=== PATIENT | female | born 1990 | race Caucasian/White ===

== ENCOUNTER 2016-10-20 06:07 | Inpatient (IN) | payer MEDICAID ==
[2016-10-17 11:43] LABS: ABSOLUTE EOSINOPHILS # (AUTO) 0.1 10^3/uL (0.0-0.6); ABSOLUTE LYMPHOCYTES (AUTO) 1.9 10^3/uL (0.5-4.7); ABSOLUTE NEUT (AUTO) 6.8 10^3/uL (1.7-8.2); BASOPHILS % (AUTO) 0.4 % (0-2); EOSINOPHILS % (AUTO) 1.4 % (0-6); HEMATOCRIT 36.1 % (36.0-47.0); HEMOGLOBIN 12.7 g/dL (12.0-15.5); LYMPHOCYTES % (AUTO) 19.6 % (13-45); MEAN CORPUSCULAR HEMOGLOBIN 33.9 pg (27.0-33.4); MEAN CORPUSCULAR HGB CONC 35.3 g/dL (32.0-36.0); MEAN CORPUSCULAR VOLUME 96 fl (80-97); MONOCYTES % (AUTO) 10.4 % (3-13); RED BLOOD COUNT 3.76 10^6/uL (3.72-5.28); RED CELL DISTRIBUTION WIDTH 13.2 % (11.5-14.0); SEGMENTED NEUTROPHILS % (AUTO) 68.2 % (42-78); WHITE BLOOD COUNT 9.9 10^3/uL (4.0-10.5)
[2016-10-17 11:49] LABS: APPEARANCE,URINE SLIGHTLY-CLOUDY; BILIRUBIN,URINE NEGATIVE (NEGATIVE); GLUCOSE, URINE NEGATIVE (NEGATIVE); KETONES,URINE NEGATIVE (NEGATIVE); LEUKOCYTE ESTERASE,URINE NEGATIVE (NEGATIVE); NITRITE,URINE NEGATIVE (NEGATIVE); PROTEIN,URINE NEGATIVE (NEGATIVE); URINE SPECIFIC GRAVITY 1.009; UROBILINOGEN,URINE NEGATIVE mg/dL (<2.0)
[2016-10-17 12:30] LABS: URINE BARBITURATES SCREEN NEGATIVE; URINE METHADONE SCREEN NEGATIVE; URINE OPIATES LOW NEGATIVE; URINE PHENCYCLIDINE SCREEN NEGATIVE
[~2016-10-20 06:07] MED LIST: CEFAZOLIN 2 GM/D5W RTU 2 GM/50 ML RTUPB IV PRN; CITRIC ACID/SODIUM CITRATE ORAL SOLN 15 ML UDCUP PO PRN; LACTATED RINGERS 1000 ML IV PRN; LIDOCAINE 0.5% INJ-PF (5 MG/ML) 50 ML SDV SUBCUT PRN
[2016-10-20] MEDS ORDERED: RINGERS SOLUTION,LACTATED 1,000 ML IV PRN (06:47)
[2016-10-20] MEDS ORDERED: ACETAMINOPHEN 100 ML IV ONE (07:32)
[2016-10-20] MEDS ORDERED: PROPOFOL INJ 200 MG/20 ML VIAL IV ONE (07:55)
[2016-10-20] MEDS ORDERED: MIDAZOLAM 2 MG/2 ML INJ ONE (07:56)
[2016-10-20] MEDS ORDERED: MORPHINE SULFATE 10 MG/ML INJ ONE (07:56)
[2016-10-20] MEDS ORDERED: OXYTOCIN 10 UNIT/ML VIAL ONE (07:56)
[2016-10-20] MEDS ORDERED: ACETAMINOPHEN 325 MG TABLET PO PRN (09:09)
[2016-10-20] MEDS ORDERED: SIMETHICONE 80 MG TAB.CHEW PO PRN (09:09)
[2016-10-20] MEDS ORDERED: PROMETHAZINE HCL INJ 25 MG/1 ML VIAL IV PRN (09:09)
[2016-10-20] MEDS ORDERED: OXYTOCIN/NORMAL SALINE 1,000 ML IV PRN (09:09)
[2016-10-20] MEDS ORDERED: DIPH/PERTUSS(ACELL)/TETANUS VAC/PF 0.5 ML SYR (>=10YO) IM PRN (09:09)
[2016-10-20] MEDS ORDERED: OXYCODONE-ACETAMINOPHEN 5-325 MG TABLET PO PRN (09:09)
[2016-10-20] MEDS ORDERED: MEASLES,MUMPS&RUBELLA VACC/PF 0.5 ML VIAL SUBCUT PRN (09:09)
--- NOTE | 2016-10-20 09:15 | Operative Report ---
Operative Report DATE OF SURGERY: 10/20/16 PREOPERATIVE DIAGNOSIS: Repeat to prevent risk of uterine rupture POSTOPERATIVE DIAGNOSIS: Same OPERATION: Repeat via low transverse uterine incision SURGEON: MAURISIO TODD WIRE STRANDER: OR staff ANESTHESIA: Spinal TISSUE REMOVED OR ALTERED: Placenta COMPLICATIONS: None ESTIMATED BLOOD LOSS: 250 mL INTRAOPERATIVE FINDINGS: Viable female Apgars 9 and 9 weight 7 lbs. 6 oz. PROCEDURE: Patient was taken to the OR and placed in supine position after her spinal anesthesia. She is prepared and draped in sterile fashion. Rojas was placed for drainage of the bladder. Low transverse incision was made and carried down the level of the fascia. The fascial incision was made with knife and extended bilaterally with curved Olson scissors. The fascia was off the rectus muscles using sharp and blunt dissection. The rectus muscles are in the midline. The peritoneum was entered without incident. Bladder blade was placed in uterine segment was identified. A low transverse incision was made creating a bladder flap. Bladder blade was placed low transverse uterine incision was made with the csafe knife and extended with fingertips. The baby was delivered with some fundal pressure. A Kiwi vacuum was used to assist the delivery of the head. The pressure was in the green with 1 small pull, no pop offs. Mouth and nose were suctioned free. The cord is doubly clamped and cut. Baby is passed off to the design technology teacher in attendance. The placenta was manually extracted with trailing membranes. The uterus was externalized wrapped in a moist lap sponge. Uterine contents wiped free. Uterus was closed with a running locking layer of 0 chromic suture using the second layer to imbricate the first completing a double layer closure of the uterus. The serosa was closed with a running 2-0 chromic stitch. The pelvis was irrigated and suctioned free of fluid the uterus was replaced in the abdomen. The abdominal wall peritoneum was closed with running 2-0 chromic stitch. Fascia was closed with a running 0 Vicryl in 2 segments. Tammi's layer was brought together with 0 plain gut stitch and the skin was closed with running subcuticular 4-0 undyed Vicryl stitch. The wound was dressed mother and baby did well.
[2016-10-20] MEDS: FENTANYL CITRATE INJ/PF 100 MCG/2 ML AMPUL ONE ×2 (09:45→10:06)
[2016-10-20] MEDS: KETOROLAC TROMETHAMINE INJ/PF 30 MG/1 ML SDV IV SCH ×3 (09:56→22:14)
[2016-10-20] MEDS ORDERED: KETOROLAC TROMETHAMINE INJ/PF 30 MG/1 ML SDV ONE (09:57)
[2016-10-20] MEDS: MORPHINE SULFATE 10 MG/ML INJ ONE ×2 (10:34→10:37)
[2016-10-20] MEDS: DOCUSATE SODIUM 100 MG CAPSULE PO SCH ×2 (11:40→17:05)
[2016-10-20] MEDS: PRENATAL VITAMIN W-O CA NO5/FE FUMARATE/FA CAPSULE PO SCH (11:40)
[2016-10-20] MEDS: HYDROMORPHONE HCL INJ/PF 2 MG/ML AMPULE IV PRN ×2 (11:48→18:24)
[2016-10-20] MEDS ORDERED: LIDOCAINE 2% INJ-PF (20 MG/ML) 10 ML AMPUL ONE (12:17)
[2016-10-20] MEDS ORDERED: PHENYLEPHRINE HCL INJ/PF 10 MG/1 ML SDV ONE (12:17)
[2016-10-20] MEDS ORDERED: ONDANSETRON HCL INJ/PF 4 MG/2 ML SDV ONE (12:17)
[2016-10-20] MEDS ORDERED: KETOROLAC TROMETHAMINE 60 MG/2 ML SDV ONE (12:17)
[2016-10-20] MEDS: OXYCODONE-ACETAMINOPHEN 5-325 MG TABLET PO PRN ×2 (15:05→21:05)
[2016-10-21] MEDS: OXYCODONE-ACETAMINOPHEN 5-325 MG TABLET PO PRN ×5 (01:07→20:44)
[2016-10-21] MEDS: KETOROLAC TROMETHAMINE INJ/PF 30 MG/1 ML SDV IV SCH (05:22)
[2016-10-21 07:13] LABS: HEMATOCRIT 33.7 % (36.0-47.0); HEMOGLOBIN 11.9 g/dL (12.0-15.5); MEAN CORPUSCULAR HEMOGLOBIN 33.9 pg (27.0-33.4); MEAN CORPUSCULAR HGB CONC 35.4 g/dL (32.0-36.0); MEAN CORPUSCULAR VOLUME 96 fl (80-97); RED BLOOD COUNT 3.51 10^6/uL (3.72-5.28); RED CELL DISTRIBUTION WIDTH 13.1 % (11.5-14.0); WHITE BLOOD COUNT 12.8 10^3/uL (4.0-10.5)
--- NOTE | 2016-10-21 09:55 | PDOC PROGRESS REPORT ---
Subjective-OB Subjective: Post Delivery Day: 26 year old. Denies any needs at this time Physical Exam (OB) Vital Signs: Temp Pulse Resp BP Pulse Ox 97.8 F 85 18 103/59 L 97 10/21/16 08:15 10/21/16 08:15 10/21/16 08:15 10/21/16 08:15 10/21/16 08:15 Intake & Output 10/20/16 10/21/16 10/22/16 06:59 06:59 06:59 Intake Total 4680 Output Total 2925 Balance 1755 - Dressing Removed: No Incision: Dressing - Lochia Lochia Amount: Scant < 10 ml Lochia Color: Rubra/Red - Abdomen Description: Tender, Soft Hernia Present: No Bowel Sounds: Normoactive Flatus Presence: Present Stool: No Fundal Description: Firm, Midline Fundal Height: u/u - u/2 Objective-Diagnostic Laboratory: 10/21/16 06:55 10/21/16 06:55 WBC 12.8 H RBC 3.51 L Hgb 11.9 L Hct 33.7 L MCV 96 MCH 33.9 H MCHC 35.4 RDW 13.1 Plt Count 239
[2016-10-21] MEDS: PRENATAL VITAMIN W-O CA NO5/FE FUMARATE/FA CAPSULE PO SCH (10:05)
[2016-10-21] MEDS: DOCUSATE SODIUM 100 MG CAPSULE PO SCH ×2 (10:06→17:56)
[2016-10-21] MEDS: IBUPROFEN 800 MG TABLET PO SCH ×3 (12:04→23:24)
[2016-10-22] MEDS: OXYCODONE-ACETAMINOPHEN 5-325 MG TABLET PO PRN (01:42)
[2016-10-22 03:42] VITALS: BP 112/60
[2016-10-22] MEDS: DOCUSATE SODIUM 100 MG CAPSULE PO SCH ×2 (10:00→18:00)
[2016-10-22] MEDS: PRENATAL VITAMIN W-O CA NO5/FE FUMARATE/FA CAPSULE PO SCH (10:00)
[2016-10-22] MEDS: IBUPROFEN 800 MG TABLET PO SCH ×2 (12:00→18:00)
--- NOTE | 2016-10-24 16:50 | PDOC DELIVERY SUMMARY ---
Delivery Summary - Maternal Hx : III Hx # Term Pregnancies: 1 Hx # Pregnancies: 1 Hx Total # of Abortions (Sponateous & Elective): 1 JANINE: 10/25/16 Gestational Age: 39+2 Ruptured Membranes: AROM Time of Rupture: 08:29 Fluids: Clear - Delivery Presentation: Face/Brow Heart Rate Monitoring: Done Pre-Operatively Support Person Present: Yes Location: OR : Scheduled Placenta: Within Normal Limits Delivery of Placenta Date: 10/20/16 Delivery of Placenta Time: 08:33 - Medications Type of Anesthesia:: Spinal - Assess and Care Baby 1 Female Delivery of Infant Date: 10/20/16 Delivery of Infant Time: 08:31 at 1 minute: 9 at 5 minutes: 9 Preprinted Number On Band: [id number] Infant Skin to Skin: Yes Skin to Skin (Mins): 7 To Nursery At: 08:42 [facility] Weight: 3445 kg Infant Length: 18.5 in - Delivery Personnel Nursery RN: Raul PERALTA Nursery RN: Carmine REILLY RN: SUMEET LAINEZ RN: DAVE GALLOWAY MD: MAURISIO POOL Studio Assistant: DR. MEJIA
== END 2016-10-22 12:41 | disposition home or self-care (01) | DRG 766 ==
LOC: 2S 06:07
PROVIDERS: ADMIT Obstetrics & Gynecology; ATTEND Obstetrics & Gynecology
PROC: 4A1HXCZ Monitoring of Products of Conception, Cardiac Rate, External Approach (ICD-10-PCS; 2016-10-20)
PROC: 10D00Z1 Extraction of Products of Conception, Low, Open Approach (ICD-10-PCS; principal; 2016-10-20 07:45)
DX: O34.211 Maternal care for low transverse scar from previous cesarean delivery (principal); O99.344 Other mental disorders complicating childbirth; F31.9 Bipolar disorder, unspecified; Z3A.39 39 weeks gestation of pregnancy; Z37.0 Single live birth
CPT/HCPCS: 1961; 36415; 80307; 81001; 85025; 85027; 86850; 86900; 86901; 94799; J0131; J1170; J1885; J2250; J2270; J2370; J2405; J2590; J2704; J3010; J3490

== ENCOUNTER 2017-12-20 11:25 | Outpatient (CLI) | payer MEDICAID ==
[2017-12-20 12:03] LABS: APPEARANCE,URINE CLEAR; BILIRUBIN,URINE NEGATIVE (NEGATIVE); COLOR,URINE YELLOW; GLUCOSE, URINE NEGATIVE (NEGATIVE); KETONES,URINE NEGATIVE (NEGATIVE); LEUKOCYTE ESTERASE,URINE MODERATE (NEGATIVE); NITRITE,URINE NEGATIVE (NEGATIVE); PROTEIN,URINE NEGATIVE (NEGATIVE); URINE SPECIFIC GRAVITY 1.013
[2017-12-20 12:16] LABS: URINE AMPHETAMINES SCREEN NEGATIVE; URINE BARBITURATES SCREEN NEGATIVE; URINE BENZODIAZEPINES SCREEN NEGATIVE; URINE COCAINE SCREEN NEGATIVE; URINE MARIJUANA (THC) SCREEN NEGATIVE; URINE METHADONE SCREEN NEGATIVE; URINE PHENCYCLIDINE SCREEN NEGATIVE
--- NOTE | 2017-12-20 12:16 | Non Stress Test Report ---
Non Stress Test Datetime Report Generated by CPN: 12/20/2017 12:15 DEMOGRAPHIC EGA NST: 33.5 INDICATION Indication for Study: Ordered by Provider Indication for Study (NST) Other: Labor Check MONITORING Monitor Explained: Monitor Explained; Test Explained; Patient Verbalized Understanding Time on Monitor: 12/20/2017 11:42 Time off Monitor: 12/20/2017 12:14 NST Duration: 32 NST INTERVENTIONS NST Interventions: PO Hydration; Reposition Patient Physician Notified NST: Dr. Lazar BABY A: [id number] BABY A Movement : Present Contraction Frequency : 0 Accelerations : 15X15 Decelerations : None Variability : Moderate 6-25bpm NST Review: Meets Criteria for Reactive NST NST Review and Verified By : Gregg Redmond RN NST Results: Reactive NST REPORT Report Trigger: Send Report
== END 2017-12-20 12:50 | disposition home or self-care (01) ==
LOC: LC 11:25
PROVIDERS: ATTEND Obstetrics & Gynecology Gynecology
PROC: 4A1HXCZ Monitoring of Products of Conception, Cardiac Rate, External Approach (ICD-10-PCS; principal; 2017-12-20)
DX: Z34.93 Encounter for supervision of normal pregnancy, unspecified, third trimester (principal)
CPT/HCPCS: 80307; 81001

== ENCOUNTER 2017-12-29 09:59 | Outpatient (CLI) | payer MEDICAID ==
--- NOTE | 2017-12-29 10:51 | Non Stress Test Report ---
Non Stress Test Datetime Report Generated by CPN: 12/29/2017 10:51 DEMOGRAPHIC EGA NST: 35.0 INDICATION Indication for Study: Ordered by Provider Indication for Study (NST) Other: J. Givens, CNM VITAL SIGNS Temperature - NST: 97.9 Pulse - NST: 82 RESP - NST: 14 NBPSYS NST: 99 NBPDIA NST: 58 MONITORING Monitor Explained: Monitor Explained; Test Explained; Patient Verbalized Understanding Time on Monitor: 12/29/2017 10:17 Time off Monitor: 12/29/2017 10:47 NST Duration: 30 NST INTERVENTIONS NST Interventions: PO Hydration; Reposition Patient BABY A: [id number] BABY A Movement : Present Contraction Frequency : 0 FHR Baseline : 120 Accelerations : 15X15 Decelerations : None Variability : Moderate 6-25bpm NST Review: Meets Criteria for Reactive NST NST Review and Verified By : Pamela Avila RN NST Results: Reactive NST REPORT Report Trigger: Send Report
[2017-12-29 10:56] LABS: APPEARANCE,URINE CLEAR; BILIRUBIN,URINE NEGATIVE (NEGATIVE); COLOR,URINE STRAW; GLUCOSE, URINE NEGATIVE (NEGATIVE); KETONES,URINE NEGATIVE (NEGATIVE); LEUKOCYTE ESTERASE,URINE NEGATIVE (NEGATIVE); NITRITE,URINE NEGATIVE (NEGATIVE); PROTEIN,URINE NEGATIVE (NEGATIVE); URINE SPECIFIC GRAVITY 1.005; UROBILINOGEN,URINE NEGATIVE mg/dL (<2.0)
[2017-12-29 11:17] LABS: URINE AMPHETAMINES SCREEN NEGATIVE; URINE BARBITURATES SCREEN NEGATIVE; URINE BENZODIAZEPINES SCREEN NEGATIVE; URINE COCAINE SCREEN NEGATIVE; URINE MARIJUANA (THC) SCREEN NEGATIVE; URINE METHADONE SCREEN NEGATIVE; URINE PHENCYCLIDINE SCREEN NEGATIVE
== END 2017-12-29 11:17 | disposition home or self-care (01) ==
LOC: LC 09:59
PROVIDERS: ATTEND Obstetrics & Gynecology
PROC: 4A1HXCZ Monitoring of Products of Conception, Cardiac Rate, External Approach (ICD-10-PCS; principal; 2017-12-29)
DX: O99.89 Other specified diseases and conditions complicating pregnancy, childbirth and the puerperium (principal); M54.40 Lumbago with sciatica, unspecified side; Z3A.35 35 weeks gestation of pregnancy
CPT/HCPCS: 59025; 80307; 81001

== ENCOUNTER 2018-01-21 11:32 | Emergency (ER) | payer MEDICAID ==
[2018-01-21 11:44] VITALS: BP 115/71
--- NOTE | 2018-01-21 11:59 | ER Document Report ---
HPI - HPI Patient complains to provider of: Dental pain Pain Level: 5 Context: Patient is a 27-year-old female complaining of acute onset pain to her right upper premolar tooth #15 approximately an hour prior to arrival. Patient had that tooth extracted over a year ago but is having "phantom" pain. No fever or facial swelling Associated Symptoms: None Exacerbated by: Denies - Dental clinic - ROS Systems Reviewed and Negative: Yes All other systems reviewed and negative - REPRODUCTIVE Reproductive: REPORTS: : Past Medical History - General Information source: Patient - Social History Smoking Status: Current Every Day Smoker Frequency of alcohol use: None Lives with: Family Family History: CAD, Hyperlipidemia, Hypertension, Malignancy GI Medical History: Reports: Hx Gastroesophageal Reflux Disease - c preg. Denies: Hx Hiatal Hernia, Hx Ulcer Psychiatric Medical History: Reports: Hx Bipolar Disorder - no meds, Hx Depression - no meds Past Surgical History: Reports: Hx Breast Surgery - biopsy, Hx Section - 06/24/14 - Immunizations Immunizations up to date: Yes Hx Diphtheria, Pertussis, Tetanus Vaccination: Yes - 2014 [facility] Provider Document - CONSTITUTIONAL Agree With Documented VS: Yes - INFECTION CONTROL TRAVEL OUTSIDE OF THE [place] IN LAST 30 DAYS: No - HEENT HEENT: Atraumatic, PERRLA Mouth Diagram: 1 - pain. No swelling or gingival abscess - NECK Neck: Normal Inspection, Supple - RESPIRATORY Respiratory: Breath Sounds Normal - CARDIOVASCULAR Cardiovascular: Regular Rate, Regular Rhythm - MUSCULOSKELETAL/EXTREMETIES Musculoskeletal/Extremeties: MAEW - NEURO Level of Consciousness: Awake, Alert, Appropriate Course - Re-evaluation Re-evalutation: 01/21/18 11:56 History and physical are consistent with an uncomplicated dental pain. There are no signs of Sharath's angina or peritonsillar abscess or gingival abscess. Patient has no trismus. No perioral swelling. No airway compromise. No signs and symptoms of sepsis. Course of antibiotics will be prescribed. Patient encouraged to follow-up with dental for further evaluation and treatment - Vital Signs Vital signs: Temp Pulse Resp BP Pulse Ox 97.9 F 80 16 115/71 99 01/21/18 11:43 01/21/18 11:43 01/21/18 11:43 01/21/18 11:43 01/21/18 11:43 Discharge - Discharge Clinical Impression: Pain, dental Disposition: HOME, SELF-CARE Instructions: Toothache ([facility]), Penicillin V K ([facility]), Acetaminophen Additional Instructions: Take antibiotic as prescribed Take Tylenol for pain Follow-up with dental for further evaluation and treatment Prescriptions: Penicillin V Potassium [Penicillin Vk 500 mg Tablet] 500 mg PO BID #20 tablet Forms: Return to Work Referrals: CESAR ABRAMS MD [Primary Care Provider] - Follow up as needed
== END 2018-01-21 12:01 | disposition home or self-care (01) ==
LOC: ER 11:32
DX: K08.9 Disorder of teeth and supporting structures, unspecified (principal); F17.200 Nicotine dependence, unspecified, uncomplicated
CPT/HCPCS: 99282

== ENCOUNTER 2018-01-27 16:01 | Inpatient (IN) | payer MEDICAID ==
[2018-01-27 16:44] LABS: APPEARANCE,URINE SLIGHTLY-CLOUDY; BILIRUBIN,URINE NEGATIVE (NEGATIVE); COLOR,URINE YELLOW; GLUCOSE, URINE NEGATIVE (NEGATIVE); KETONES,URINE NEGATIVE (NEGATIVE); LEUKOCYTE ESTERASE,URINE NEGATIVE (NEGATIVE); NITRITE,URINE NEGATIVE (NEGATIVE); PROTEIN,URINE NEGATIVE (NEGATIVE); URINE SPECIFIC GRAVITY 1.015; UROBILINOGEN,URINE NEGATIVE mg/dL (<2.0)
[2018-01-27] MEDS ORDERED: RINGERS SOLUTION,LACTATED 1,000 ML IV PRN ×2 (16:56→19:05)
[2018-01-27] MEDS ORDERED: CEFAZOLIN 2 GM/D5W RTU 2 GM/50 ML RTUPB IV ONE (17:21)
[2018-01-27] MEDS ORDERED: CITRIC ACID/SODIUM CITRATE ORAL SOLN 15 ML UDCUP ONE (17:21)
[2018-01-27 17:25] LABS: URINE AMPHETAMINES SCREEN NEGATIVE; URINE BARBITURATES SCREEN NEGATIVE; URINE BENZODIAZEPINES SCREEN NEGATIVE; URINE COCAINE SCREEN NEGATIVE; URINE MARIJUANA (THC) SCREEN NEGATIVE; URINE METHADONE SCREEN NEGATIVE; URINE PHENCYCLIDINE SCREEN NEGATIVE
[2018-01-27 17:41] LABS: ABSOLUTE EOSINOPHILS # (AUTO) 0.1 10^3/uL (0.0-0.6); ABSOLUTE LYMPHOCYTES (AUTO) 1.7 10^3/uL (0.5-4.7); ABSOLUTE MONOCYTES (AUTO) 0.9 10^3/uL (0.1-1.4); ABSOLUTE NEUT (AUTO) 6.5 10^3/uL (1.7-8.2); BASOPHILS % (AUTO) 0.5 % (0-2); EOSINOPHILS % (AUTO) 1.4 % (0-6); HEMATOCRIT 33.8 % (36.0-47.0); HEMOGLOBIN 11.9 g/dL (12.0-15.5); LYMPHOCYTES % (AUTO) 18.5 % (13-45); MEAN CORPUSCULAR HEMOGLOBIN 33.2 pg (27.0-33.4); MEAN CORPUSCULAR HGB CONC 35.1 g/dL (32.0-36.0); MEAN CORPUSCULAR VOLUME 95 fl (80-97); MONOCYTES % (AUTO) 9.8 % (3-13); PLATELET COUNT 267 10^3/uL (150-450); RED BLOOD COUNT 3.57 10^6/uL (3.72-5.28); RED CELL DISTRIBUTION WIDTH 12.7 % (11.5-14.0); SEGMENTED NEUTROPHILS % (AUTO) 69.8 % (42-78); TOTAL CELLS COUNTED % (AUTO) 100 %; WHITE BLOOD COUNT 9.3 10^3/uL (4.0-10.5)
[2018-01-27] MEDS ORDERED: CEFAZOLIN SODIUM 1 GM in DEXTROSE 5%-WATER 50 ML IV PRN (17:45)
[2018-01-27] MEDS ORDERED: OXYTOCIN 10 UNIT/ML VIAL ONE (17:45)
[2018-01-27] MEDS ORDERED: FENTANYL CITRATE INJ/PF 100 MCG/2 ML AMPUL ONE ×2 (17:45→19:33)
[2018-01-27] MEDS ORDERED: EPHEDRINE SULFATE INJ 50 MG/1 ML AMPULE ONE (17:46)
[2018-01-27] MEDS ORDERED: ONDANSETRON HCL INJ/PF 4 MG/2 ML SDV ONE (17:46)
[2018-01-27] MEDS ORDERED: MIDAZOLAM 2 MG/2 ML INJ ONE (17:46)
[2018-01-27] MEDS ORDERED: BUPIVACAINE HCL/DEX-WATER/PF 15 MG/2 ML AMPULE ONE (17:46)
[2018-01-27] MEDS ORDERED: OXYTOCIN/NORMAL SALINE 20 UNIT/1,000 ML RTUINJ ONE (17:46)
[2018-01-27] MEDS ORDERED: METHYLERGONOVINE MALEATE INJ/PF 0.2 MG/1 ML AMPULE ONE (17:46)
[2018-01-27] MEDS ORDERED: KETOROLAC TROMETHAMINE INJ/PF 30 MG/1 ML SDV ONE (17:47)
[2018-01-27] MEDS ORDERED: ACETAMINOPHEN 1,000 MG/100 ML RTUPB IV ONE (17:47)
[2018-01-27] MEDS: CEFAZOLIN 2 GM/D5W RTU 2 GM/50 ML RTUPB IV SCH (17:49)
[2018-01-27] MEDS ORDERED: RINGERS SOLUTION,LACTATED 300 ML IV ONE (18:00)
[2018-01-27] MEDS ORDERED: CITRIC ACID/SODIUM CITRATE ORAL SOLN 15 ML UDCUP PO ONE (18:00)
--- NOTE | 2018-01-27 18:01 | Admission Physical ---
Datetime Report Generated by CPN: 01/27/2018 18:01 CURRENT ADMISSION Chief Complaint: Suspected Ruptured Membranes Indication for Induction: Not Applicable Admit Impression : Term, Intrauterine ; Ruptured Membranes; Repeat Section; Tubal Ligation Admit Plan: Admit to Unit; Initiate Section Protocol ALLERGIES Medication Allergies: No Medication Allergies: No Known Allergies (01/27/2018) Latex: No Latex Allergies Food Allergies: N/A Environmental Allergies: N/A OBSTETRICAL HISTORY EDC: 02/02/2018 00:00 : 4 Para: 2 Term: 2 : 0 SAB: 0 IAB: 1 Ectopic: 0 Livin Cesareans: 2 VBACs: 0 Multiple Births: 0 Gestational Diabetes: No Rh Sensitization: No Incompetent Cervix: No AGUEDA: No Infertility: No ART Treatment: No Uterine Anomaly: No IUGR: No Hx Previous C/S: No Macrosomia: No Hx Loss/Stillborn: No PIH: No Hx : No Placenta Previa/Abruption: No Depression/PP Depression: No PTL/PROM: No Post Hemorrhage: No Current Procedures: Ultrasound Obstetrical History Comments: G1- EAB G2-2014 G4 current SEE RECORDS Alcohol: No Marijuana : No Cocaine: No Other Illicit Drugs: No Cigarettes: Never Smoker. 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 Surgery: No Heart Disease: No Hosp/Surgery: No Autoimmune Disorder: No Anesthetic Complications: No Kidney Disease: No Abnormal Pap Smear: Yes Neuro/Epilepsy: No Psychiatric Disorders: No Other Medical Diseases: No Hepatitis/Liver Disease: No Significant Family History: No Varicosities/Phlebitis: No Trauma/Violence : No Thyroid Dysfunction: No Medical History Comments: Abnormal pap smear 2014 INFECTIOUS HISTORY Gonorrhea: No Genital Herpes: No Chlamydia: No Tuberculosis: No Syphilis: No Hepatitis: No HIV/AIDS Exposure: No Rash or Viral Illness: No HPV: No PHYSICAL EXAM General: Normal HEENT: Normal Neurologic: Normal Thyroid: Normal Heart: Normal Lungs: Normal Breast: Normal Back: Normal Abdomen: Normal Genitourinary Exam: Normal Extremities: Normal DTRs: Normal Pelvic Type: Adequate Vital Signs: Reviewed; Within Normal Limits VAGINAL EXAM Dilatation: 0 Effacement: 0 Station: 0 MEMBRANES Pooling: Positive Membranes: Ruptured Amniotic Fluid Color: Clear FETUS A EGA: 39.1 Monitoring: External US FHR- Baseline: 120 Variability: Moderate 6-25bpm Accelerations: 15X15 Decelerations: None FHR Category: Category I Estimated Weight (gm): 3500 Presentation: Vertex Admit Comment: repeat c/section and BTL PLANS FOR LABOR AND DELIVERY Labor and Delivery: None Pain Management: Spinal Feeding Preference: Breast Benefit of Breast Feed Discussed: Yes Circumcision: N/A INFORMED CONSENT Signature: with User ID: [email or web address]
[2018-01-27] MEDS ORDERED: FENTANYL CITRATE INJ/PF 100 MCG/2 ML AMPUL IV PRN ×3 (18:33)
[2018-01-27] MEDS ORDERED: OXYCODONE-ACETAMINOPHEN 5-325 MG TABLET PO PRN ×3 (18:33→19:05)
[2018-01-27] MEDS ORDERED: PROMETHAZINE HCL INJ 25 MG/1 ML VIAL IV PRN ×3 (18:33→19:05)
[2018-01-27] MEDS ORDERED: DIPHENHYDRAMINE HCL 50 MG/ML VIAL IV PRN (18:33)
[2018-01-27] MEDS ORDERED: ONDANSETRON HCL INJ/PF 4 MG/2 ML SDV IV PRN (18:33)
[2018-01-27] MEDS ORDERED: MEPERIDINE HCL/PF INJ 25 MG/1 ML DISP.SYRIN IV PRN (18:33)
[2018-01-27] MEDS ORDERED: DIPH/PERTUSS(ACELL)/TETANUS VAC/PF 0.5 ML SYR (>=10YO) IM PRN (19:05)
[2018-01-27] MEDS ORDERED: SIMETHICONE 80 MG TAB.CHEW PO PRN (19:05)
[2018-01-27] MEDS ORDERED: ACETAMINOPHEN 325 MG TABLET PO PRN (19:05)
[2018-01-27] MEDS ORDERED: OXYTOCIN/NORMAL SALINE 20 UNIT/1,000 ML RTUINJ IV PRN (19:05)
[2018-01-27] MEDS ORDERED: ACETAMINOPHEN 1,000 MG/100 ML RTUPB IV PRN (19:05)
[2018-01-27] MEDS ORDERED: MEASLES,MUMPS&RUBELLA VACC/PF 0.5 ML VIAL SUBCUT PRN (19:05)
--- NOTE | 2018-01-27 19:41 | OPERATIVE REPORT E ---
Operative Report NAME: DENY HORNER : 1990 AGE: 27Y DATE OF SURGERY: 01/27/2018 ROOM: LR200 PREOPERATIVE DIAGNOSIS: 1. Intrauterine at 39 weeks and 1 day. 2. Previous section x2. 3. Undesired fertility. POSTOPERATIVE DIAGNOSIS: 4. Intrauterine at 39 weeks and 1 day. 5. Previous section x2. 6. Undesired fertility. PROCEDURE: Low transverse hysterotomy section with [place] tubal ligation. SURGEON: LUI KENDRICK M.D. ANESTHESIA: Alex Ricketts M.D. with a spinal. FINDINGS: Female , cephalic presentation of with scores of 8 and 9. ESTIMATED BLOOD LOSS: 600 mL. TISSUE REMOVED OR ALTERED: Pathology was bilateral fallopian tubes. PROCEDURE IN DETAIL: The patient was taken to the operating room, prepared and draped in a normal sterile fashion in the supine position with a leftward tilt. A transverse skin incision was made with a scalpel and carried through to the underlying layer of fascia with the same scalpel. The fascia was excised in the midline and extended laterally with Wesley. The fascia was dissected from the rectus muscles sharply with Wesley and the rectus muscle was divided, the peritoneal cavity entered bluntly. The bladder blade was inserted. The hysterotomy was nicked with a scalpel and extended laterally with surgeon finger fracture. The infant was then delivered atraumatically. The nose and mouth were suctioned with a suction bulb and the cord was clamped and cut, and the infant was handed off to the awaiting industry analyst. The placenta was removed manually. The uterus was exteriorized and cleared of clots and debris. The hysterotomy was closed with 0 Monocryl in a running, locked fashion. A second layer of the same suture was used to imbricate to ensure hemostasis. Attention was then turned to the fallopian tubes and the right fallopian tube was grasped with a shadi and the mesosalpinx was divided with the bovie. a 3 cm section of fallopian tube was tied off with two pieces of 2-0 chromic and the intermidiate section was removed with mets. The pedicles with made hemostatic with the bovie. The procedure was repeated on the left without difficulty. The uterus was returned to the abdomen. The peritoneal cavity was cleared of clots and debris. The rectus muscle and peritoneum were reapproximated with a mattress stitch of 2-0 chromic. The fascia was closed with 0 Vicryl. The subcutaneous layer was closed with plain catgut. The skin was closed with 4-0 Vicryl. The patient tolerated the procedure well. Sponge, lap, and needle counts were correct x2, and the patient was taken to recovery in stable condition. DICTATING PHYSICIAN: LUI KENDRICK M.D. [id number] PHY#: [id number] 1911 ID: [id number] JOB#: [id number] ACCT: [id number] cc:LUI KENDRICK M.D. > MTDD
--- NOTE | 2018-01-27 20:05 | Warning Signs in Babies ---
VOD Warning Signs Datetime Report Generated by [facility]: 01/27/2018 20:04 VOD#[id number] -Warning Signs in Babies: Needs to be viewed. (12/20/2017 11:46:Lorene Parker RN)
--- NOTE | 2018-01-27 20:06 | Warning Signs in Babies ---
VOD Warning Signs Datetime Report Generated by [facility]: 01/27/2018 20:06 VOD#608 -Warning Signs in Babies: Needs to be viewed. (12/20/2017 11:46:Lorene Parker RN)
--- NOTE | 2018-01-27 20:23 | Delivery Summary ---
Del Sum A-C Datetime Report Generated by CPN: 01/27/2018 20:22 DELIVERY PERSONNEL DELIVERY PERSONNEL: [id number] Delivery Doctor:: Catrina Grant MD Anesthesiologist:: Alex Ricketts MD ICT DEVELOPMENT MANAGER:: Anna Garrett CRNA Labor and Delivery Nurse:: Florin Warner RNuniform force captain Nurse:: Lorene Parker RN Line Production Cook:: Florin Warner RN Plant Protection Guard:: Dr. Guille Perez Nursery Nurse:: Elda Paredes RN Hot Patcher/APPLICATION DEVELOPMENT INTERN: Fiona Bonner CST Hot Patcher/APPLICATION DEVELOPMENT INTERN: Ysabel Villaseñor FLASK MAKER MATERNAL INFORMATION Delivery Anesthesia: Spinal Medications After Delivery: Pitocin Drip 20 Units/1000ml NSS Maternal Complications: None LABOR SUMMARY EDC: 02/02/2018 00:00 No. Babies in Womb: 1 LABOR INFORMATION Group B Beta Strep: Positive Antibiotics # of Doses: 1 Antibiotics Time of Last Dose: 1755 Name of Antibiotic Given: Ancef 2 g MEMBRANES Membranes Rupture Method: Spontaneous Rupture of Membranes: 01/27/2018 14:00 Length of Rupture (hr): 4.40 Amniotic Fluid Color: Clear (Annotations: ROM at home) Amniotic Fluid Amount: Small Amniotic Fluid Odor: Normal STAGES OF LABOR Stage 3 hr: 0 Stage 3 min: 2 VAGINAL DELIVERY Episiotomy: None Laceration #1: None Laceration Extension #1: N/A Sponge Count Correct: N/A CSECTION DELIVERY Primary Indication: Repeat Elective CSection Urgency: Non-Scheduled CSection Incidence: Repeat Labor: No Labor Elective: Elective CSection Incision: Lower Uterine Transverse Sterilization Procedure: Athelstan BABY A INFORMATION Delivery Date/Time: 01/27/2018 18:24 Method of Delivery: Born in Route : No : N/A Forceps: N/A Vacuum Extraction: N/A Shoulder Dystocia : No PRESENTATION/POSITION BABY A Presentation: Cephalic Cephalic Presentation: Vertex PLACENTA INFORMATION BABY A Placenta Delivery Time : 01/27/2018 18:26 Placenta Method of Delivery: Manual Removal Placenta Status: Delivered SCORES BABY A Heart Rate 1 min: >100 bpm Resp Effort 1 min: Good Cry Reflex Irritability 1 min: Cough or Sneeze or Pulls Away Muscle Tone 1 min: Active Motion Color 1 min: Body [place], Extremities Blue Resuscitation Effort 1 min: Tactile Stimulation SCORE 1 MIN: 9 Heart Rate 5 min: >100 bpm Resp Effort 5 min: Good Cry Reflex Irritability 5 min: Cough or Sneeze or Pulls Away Muscle Tone 5 min: Active Motion Color 5 min: Body [place], Extremities Blue Resuscitation Effort 5 min: Tactile Stimulation SCORE 5 MIN: 9 INFORMATION BABY A Gestational Age at Delivery: 39.1 Gestational Status: Full Term- 39- 40.6 Weeks Outcome : Liveborn Infant Condition : Stable Sex: Female IDENTIFICATION BABY A Infant Verification Date/Time: 01/27/2018 18:26 ID Band Number: [id number] Mother's Name Verified: Yes Infant RN Verifying : , RN and T. Timmy, RN WEIGHT/LENGTH BABY A Infant Birthweight (gm): 3400 Weight (lb): 7 Weight (oz): 8 Length (in): 19.75 Length (cm): 50.17 CORD INFORMATION BABY A No. Cord Vessels: 3 Nuchal Cord : N/A Cord Blood Taken: Yes-For Eval (Mom's Blood Type - or O+) Infant Suction: Mouth; Nose ASSESSMENT BABY A Skin to Skin: Yes
[2018-01-27] MEDS ORDERED: MORPHINE SULFATE 10 MG/ML INJ ONE (20:31)
[2018-01-27] MEDS: MORPHINE SULFATE 10 MG/ML INJ IV PRN ×2 (20:34→20:52)
[2018-01-27] MEDS: OXYCODONE-ACETAMINOPHEN 5-325 MG TABLET PO PRN (21:37)
[2018-01-28] MEDS: MORPHINE SULFATE 10 MG/ML INJ IV PRN ×2 (00:49→05:30)
[2018-01-28] MEDS: OXYCODONE-ACETAMINOPHEN 5-325 MG TABLET PO PRN ×6 (01:48→22:40)
[2018-01-28] MEDS ORDERED: KETOROLAC TROMETHAMINE INJ/PF 30 MG/1 ML SDV IV SCH (02:00)
[2018-01-28 06:38] LABS: HEMATOCRIT 32.4 % (36.0-47.0); HEMOGLOBIN 11.7 g/dL (12.0-15.5); MEAN CORPUSCULAR HEMOGLOBIN 33.6 pg (27.0-33.4); MEAN CORPUSCULAR VOLUME 93 fl (80-97); PLATELET COUNT 242 10^3/uL (150-450); RED BLOOD COUNT 3.48 10^6/uL (3.72-5.28); RED CELL DISTRIBUTION WIDTH 12.7 % (11.5-14.0); WHITE BLOOD COUNT 10.6 10^3/uL (4.0-10.5)
[2018-01-28] MEDS: CEFAZOLIN 2 GM/D5W RTU 2 GM/50 ML RTUPB IV SCH (07:41)
[2018-01-28] MEDS: PRENATAL VITAMIN W DHA CAPSULE PO SCH (09:27)
[2018-01-28] MEDS: DOCUSATE SODIUM 100 MG CAPSULE PO SCH ×2 (09:27→17:42)
--- NOTE | 2018-01-28 09:33 | PDOC PROGRESS REPORT ---
Subjective-OB Progress Note for:: 01/28/18 Subjective: Pt doing well, no concerns. She reports light bleeding, reg diet, no difficulty voiding and + flatus. Physical Exam (OB) Vital Signs: Temp Pulse Resp BP Pulse Ox 98.0 F 62 16 109/65 98 01/28/18 09:09 01/28/18 09:09 01/28/18 09:09 01/28/18 09:09 01/28/18 09:09 Intake & Output 01/27/18 01/28/18 01/29/18 06:59 06:59 06:59 Intake Total 3050 Output Total 1500 Balance -1500 3050 Weight 82.2 kg - Dressing Removed: No - opsite - Lochia Lochia Amount: Scant < 10 ml Lochia Color: Rubra/Red - Abdomen Description: Soft Hernia Present: No Fundal Description: Firm, Midline Fundal Height: u/u - u/2 Objective-Diagnostic Laboratory: 01/28/18 06:30 01/27/18 01/27/18 01/27/18 16:11 16:11 17:20 WBC 9.3 RBC 3.57 L Hgb 11.9 L Hct 33.8 L MCV 95 MCH 33.2 MCHC 35.1 RDW 12.7 Plt Count 267 Seg Neutrophils % 69.8 Lymphocytes % 18.5 Monocytes % 9.8 Eosinophils % 1.4 Basophils % 0.5 Absolute Neutrophils 6.5 Absolute Lymphocytes 1.7 Absolute Monocytes 0.9 Absolute Eosinophils 0.1 Absolute Basophils 0.0 Urine Color YELLOW Cancelled Urine Appearance SLIGHTLY-CLOUDY Cancelled Urine pH 7.0 Cancelled Ur Specific [place] 1.015 Cancelled Urine Protein NEGATIVE Cancelled Urine Glucose (UA) NEGATIVE Cancelled Urine Ketones NEGATIVE Cancelled Urine Blood NEGATIVE Cancelled Urine Nitrite NEGATIVE Cancelled Ur Leukocyte Esterase NEGATIVE Cancelled Urine WBC (Auto) Cancelled Urine RBC (Auto) Cancelled Blood Type Antibody Screen 01/27/18 01/28/18 17:20 06:30 WBC 10.6 H RBC 3.48 L Hgb 11.7 L Hct 32.4 L MCV 93 MCH 33.6 H MCHC 36.0 RDW 12.7 Plt Count 242 Seg Neutrophils % Lymphocytes % Monocytes % Eosinophils % Basophils % Absolute Neutrophils Absolute Lymphocytes Absolute Monocytes Absolute Eosinophils Absolute Basophils Urine Color Urine Appearance Urine pH Ur Specific [place] Urine Protein Urine Glucose (UA) Urine Ketones Urine Blood Urine Nitrite Ur Leukocyte Esterase Urine WBC (Auto) Urine RBC (Auto) Blood Type O POSITIVE Antibody Screen NEGATIVE Assessment and Plan(PN) - Assessment and Plan (1) delivery delivered Is this a current diagnosis for this admission?: Yes (2) LGSIL on Pap smear of cervix Is this a current diagnosis for this admission?: Yes (3) Late onset antepartum care Is this a current diagnosis for this admission?: Yes (4) Positive GBS test Is this a current diagnosis for this admission?: Yes - Time Spent with Patient Time with patient: Less than 15 minutes Medications reviewed and adjusted accordingly: Yes - Disposition Anticipated Discharge: Home Within: within 24 hours
[2018-01-28] MEDS ORDERED: [UNRECOGNIZED DRUG - REMARK] PO SCH (10:00)
[2018-01-28] MEDS ORDERED: PRENATAL VITAMIN W DHA CAPSULE PO SCH (10:00)
[2018-01-28] MEDS ORDERED: DIPH/PERTUSS(ACELL)/TETANUS VAC/PF 0.5 ML SYR (>=10YO) IM PRN (10:30)
[2018-01-28] MEDS ORDERED: MEASLES,MUMPS&RUBELLA VACC/PF 0.5 ML VIAL SUBCUT PRN (10:30)
[2018-01-28] MEDS: IBUPROFEN 800 MG TABLET PO SCH ×3 (12:24→23:22)
[2018-01-29] MEDS: IBUPROFEN 800 MG TABLET PO SCH ×2 (05:45→12:21)
[2018-01-29] MEDS: OXYCODONE-ACETAMINOPHEN 5-325 MG TABLET PO PRN ×3 (05:46→13:16)
[2018-01-29] MEDS: PRENATAL VITAMIN W DHA CAPSULE PO SCH (09:22)
[2018-01-29] MEDS: DOCUSATE SODIUM 100 MG CAPSULE PO SCH (09:22)
--- NOTE | 2018-01-29 10:11 | PDOC DISCHARGE SUMMARY ---
Final Diagnosis Discharge Date: 01/29/18 - Final Diagnosis (1) delivery delivered Is this a current diagnosis for this admission?: Yes (2) History of bipolar disorder Is this a current diagnosis for this admission?: Yes (3) Positive GBS test Is this a current diagnosis for this admission?: Yes Discharge Data - Discharge Medication Prescriptions: Ibuprofen [Motrin 800 mg Tablet] 800 mg PO Q8 #60 tablet Oxycodone HCl/Acetaminophen [Percocet 5-325 mg Tablet] 1 tab PO Q4HP PRN #30 tablet PRN Reason: Vit No.130/Iron/Folic [ Tablet] 1 each PO DAILY #90 tablet Home Medications: Ibuprofen [Motrin 800 mg Tablet] 800 mg PO Q8 #60 tablet 01/29/18 Oxycodone HCl/Acetaminophen [Percocet 5-325 mg Tablet] 1 tab PO Q4HP PRN #30 tablet 01/29/18 Vit No.130/Iron/Folic [ Tablet] 1 each PO DAILY #90 tablet Procedures: NST Intrapartum Procedure(s): : Low Cervical, Transverse - Diagnosis Test Laboratory: Temp Pulse Resp BP Pulse Ox 98.2 F 67 18 111/64 97 01/29/18 07:48 01/29/18 07:48 01/29/18 07:48 01/29/18 07:48 01/29/18 07:48 01/27/18 01/27/18 01/28/18 16:11 17:20 06:30 RBC 3.57 L 3.48 L Hgb 11.9 L 11.7 L Hct 33.8 L 32.4 L Urine Opiates Screen NEGATIVE - Discharge information/Instructions Discharge Activity: Balance Activity w/Rest, No Lifting/Push/Pulling, Pelvic Rest, No tub bath Discharge Diet: Regular Disposition: HOME, SELF-CARE Follow up with: [facility] in: 1, Weeks
[2018-01-29 10:36] VITALS: BP 115/68
== END 2018-01-29 16:00 | disposition home or self-care (01) | DRG 766 ==
LOC: LC 16:01 → LR 16:41 → 2S 21:15
PROVIDERS: ADMIT Obstetrics & Gynecology; ATTEND Obstetrics & Gynecology
PROC: 10D00Z1 Extraction of Products of Conception, Low, Open Approach (ICD-10-PCS; principal; 2018-01-27)
PROC: 0UB70ZZ Excision of Bilateral Fallopian Tubes, Open Approach (ICD-10-PCS; 2018-01-27)
PROC: 4A1HXCZ Monitoring of Products of Conception, Cardiac Rate, External Approach (ICD-10-PCS; 2018-01-27)
PROC: 3E0234Z Introduction of Serum, Toxoid and Vaccine into Muscle, Percutaneous Approach (ICD-10-PCS; 2018-01-29)
DX: O34.211 Maternal care for low transverse scar from previous cesarean delivery (principal); O99.824 Streptococcus B carrier state complicating childbirth; F31.9 Bipolar disorder, unspecified; Z37.0 Single live birth; Z3A.39 39 weeks gestation of pregnancy; Z30.2 Encounter for sterilization; Z23 Encounter for immunization
CPT/HCPCS: 1961; 36415; 80307; 81005; 84112; 85025; 85027; 86592; 86850; 86900; 86901; 86920; 88302; 90715; 94799; J0131; J0690; J1885; J2210; J2250; J2270; J2405; J2590; J3010; J3490; J7120

== ENCOUNTER 2018-07-28 14:05 | Emergency (ER) | payer SELFPAY ==
--- NOTE | 2018-07-28 15:51 | ER Document Report ---
ED ENT - General Chief Complaint: Ear Pain Stated Complaint: EAR PAIN Time Seen by Provider: 07/28/18 15:11 Primary Care Provider: LUI KENDRICK MD [ACTIVE STAFF] - Follow up as needed Mode of Arrival: Ambulatory Information source: Patient Notes: 28-year-old female presented to ED for complaint of pain to the left ear for times 2 days. She states she initially had pain in the upper left jaw from a dental pain and she has a dental appointment is no longer hurts and now she has pain in the left ear. Patient is alert oriented respirations regular and unlabored speaking in full sentences walks with even steady gait. TRAVEL OUTSIDE OF THE [place] IN LAST 30 DAYS: No - HPI Patient complains to provider of: Ear problem - Left ear pain Onset: Other - 2 days Onset/Duration: Intermittent Quality of pain: Achy Severity: Moderate Pain Level: 4 Location of pain: Ears - Left, Tooth - Was hurting but no longer hurts Associated symptoms: Ear pain Similar symptoms previously: Yes Recently seen / treated by doctor: No - Related Data Allergies/Adverse Reactions: No Known Allergies Allergy (Verified 07/28/18 14:07) Past Medical History - General Information source: Patient - Social History Smoking Status: Former Smoker Frequency of alcohol use: None Drug Abuse: None Occupation: None Lives with: Spouse/Significant other - Significant other and children Family History: CAD, Hyperlipidemia, Hypertension, Malignancy Patient has suicidal ideation: No Patient has homicidal ideation: No - Past Medical History Cardiac Medical History: Reports: None Pulmonary Medical History: Reports: None EENT Medical History: Reports: None Neurological Medical History: Reports: None Endocrine Medical History: Reports: None Renal/ Medical History: Reports: None Malignancy Medical History: Reports: None GI Medical History: Reports: Hx Gastroesophageal Reflux Disease - c preg Musculoskeletal Medical History: Reports None Skin Medical History: Reports None Psychiatric Medical History: Reports: Hx Bipolar Disorder - no meds, Hx Depression - no meds Traumatic Medical History: Reports: None Infectious Medical History: Reports: None Past Surgical History: Reports: Hx Breast Surgery - biopsy, Hx Section - 06/24/14 - Immunizations Immunizations up to date: Yes Hx Diphtheria, Pertussis, Tetanus Vaccination: Yes - 2014 Review of Systems - Review of Systems Constitutional: No symptoms reported EENT: Ear pain - Left Cardiovascular: No symptoms reported Respiratory: No symptoms reported Gastrointestinal: No symptoms reported Genitourinary: No symptoms reported Female Genitourinary: No symptoms reported Musculoskeletal: No symptoms reported Skin: No symptoms reported Hematologic/Lymphatic: No symptoms reported Neurological/Psychological: No symptoms reported -: Yes All other systems reviewed and negative Physical Exam - Vital signs Vitals: Temp Pulse Resp BP Pulse Ox 98.8 F 81 16 123/89 H 98 07/28/18 14:20 07/28/18 14:20 07/28/18 14:20 07/28/18 14:20 07/28/18 14:20 Interpretation: Normal - General General appearance: Appears well, Alert - HEENT Head: Normocephalic, Atraumatic Eyes: Normal Pupils: PERRL Ears: Normal External canal: Normal Tympanic membrane: Normal Sinus: Normal Nasal: Purulent discharge, Swelling - Mainly to the left Mouth/Lips: Normal Mucous membranes: Normal Pharynx: Normal, Post nasal drainage Neck: Normal - Respiratory Respiratory status: No respiratory distress Chest status: Nontender Breath sounds: Normal Chest palpation: Normal - Cardiovascular Rhythm: Regular Heart sounds: Normal auscultation Murmur: No - Abdominal Inspection: Normal Distension: No distension Bowel sounds: Normal Tenderness: Nontender Organomegaly: No organomegaly - Back Back: Normal, Nontender - Extremities General upper extremity: Normal inspection, Nontender, Normal color, Normal ROM, Normal temperature General lower extremity: Normal inspection, Nontender, Normal color, Normal ROM, Normal temperature, Normal weight bearing. No: Ivon's sign - Neurological Neuro grossly intact: Yes Cognition: Normal Orientation: AAOx4 [place] Coma Scale Eye Opening: Spontaneous [place] Coma Scale Verbal: Oriented Rebeca Coma Scale Motor: Obeys Commands [place] Coma Scale Total: 15 Speech: Normal Motor strength normal: LUE, RUE, LLE, RLE Sensory: Normal - Psychological Associated symptoms: Normal affect, Normal mood - Skin Skin Temperature: Warm Skin Moisture: Dry Skin Color: Normal Course - Vital Signs Vital signs: Temp Pulse Resp BP Pulse Ox 98.8 F 81 16 134/85 H 98 07/28/18 14:20 07/28/18 14:20 07/28/18 14:20 07/28/18 16:07 07/28/18 14:20 Discharge - Discharge Clinical Impression: Otalgia of left ear URI (upper respiratory infection) Qualifiers: URI type: unspecified viral URI Qualified Code(s): J06.9 - Acute upper respiratory infection, unspecified Condition: Stable Disposition: HOME, SELF-CARE Instructions: Use of Lhyc-Pgw-Yfvhmur Ibuprofen ([facility]) Additional Instructions: UPPER RESPIRATORY ILLNESS: You have a viral infection of the respiratory passages -- a "cold." This common infection causes nasal congestion, drainage, and often sore throat and cough. It is highly contagious. The disease usually lasts about 10 to 14 days. There is no "cure" for the viral infection -- it must run its course. If there is a complication, such as bacterial infection in the nose, sinuses, middle ear, or bronchial tubes, antibiotics may be required. The antibiotics won't affect the virus. Drink plenty of fluids. A humidifier may help. An expectorant medication or decongestant may make you more comfortable. Use acetaminophen or ibuprofen for fever or aches. See the doctor if fever persists over two days, if there is any significant worsening of your symptoms, or if you simply fail to improve as expected. USE OF ACETAMINOPHEN (Tylenol): Acetaminophen may be taken for pain relief or fever control. It's much safer than aspirin, offering a wider range of "safe" dosages. It is safe during . Some brand names are Tylenol, Panadol, Datril, Anacin 3, Tempra, and Liquiprin. Acetaminophen can be repeated every four hours. The following are maximum recommended dosages: >89 pounds or adults 650 mg to 900 mg Acetaminophen can be repeated every four hours. Maximum dose not to exceed 4000 mg a day. Treated with suited with 30 mg Mucinex 600 mg and ibuprofen 800 mg in the ED for your ear pain to the left that is caused from your swollen nasal turbinates and sinus the left side of your face. These medications will help with the swelling and inflammation to relieve the pain in your left ear. Please follow-up with your primary doctor. These medications are [id number]. FOLLOW-UP CARE: If you have been referred to a physician for follow-up care, call the physicians office for an appointment as you were instructed or within the next two days. If you experience worsening or a significant change in your symptoms, notify the physician immediately or return to the Emergency Department at any time for re-evaluation. Referrals: LUI KENDRICK MD [ACTIVE STAFF] - Follow up as needed
[2018-07-28] MEDS ORDERED: IBUPROFEN 800 MG TABLET PO ONE (15:52)
[2018-07-28] MEDS ORDERED: GUAIFENESIN 600 MG TABLET.SA PO ONE (15:52)
[2018-07-28] MEDS ORDERED: PSEUDOEPHEDRINE HCL 30 MG TABLET PO ONE (15:52)
[2018-07-28 16:08] VITALS: BP 134/85
== END 2018-07-28 16:08 | disposition home or self-care (01) ==
LOC: ER 14:05
DX: H92.02 Otalgia, left ear (principal); J06.9 Acute upper respiratory infection, unspecified; J34.89 Other specified disorders of nose and nasal sinuses; Z87.891 Personal history of nicotine dependence
CPT/HCPCS: 99282

== ENCOUNTER 2018-12-11 06:25 | Emergency (ER) | payer SELFPAY ==
[2018-12-11] MEDS ORDERED: KETOROLAC TROMETHAMINE INJ/PF 30 MG/1 ML SDV IV ONE (07:38)
[2018-12-11] MEDS ORDERED: NORMAL SALINE 1000 ML 1,000 ML IV ONE (07:38)
[2018-12-11] MEDS ORDERED: ONDANSETRON HCL INJ/PF 4 MG/2 ML SDV IV ONE (07:38)
[2018-12-11 07:47] LABS: ABSOLUTE EOSINOPHILS # (AUTO) 0.1 10^3/uL (0.0-0.6); ABSOLUTE MONOCYTES (AUTO) 0.9 10^3/uL (0.1-1.4); ABSOLUTE NEUT (AUTO) 8.4 10^3/uL (1.7-8.2); BASOPHILS % (AUTO) 0.4 % (0-2); EOSINOPHILS % (AUTO) 0.7 % (0-6); HEMATOCRIT 40.7 % (36.0-47.0); HEMOGLOBIN 13.6 g/dL (12.0-15.5); LYMPHOCYTES % (AUTO) 9.4 % (13-45); MEAN CORPUSCULAR HEMOGLOBIN 31.2 pg (27.0-33.4); MEAN CORPUSCULAR HGB CONC 33.5 g/dL (32.0-36.0); MEAN CORPUSCULAR VOLUME 93 fl (80-97); MONOCYTES % (AUTO) 8.3 % (3-13); PLATELET COUNT 240 10^3/uL (150-450); RED BLOOD COUNT 4.36 10^6/uL (3.72-5.28); RED CELL DISTRIBUTION WIDTH 13.1 % (11.5-14.0); SEGMENTED NEUTROPHILS % (AUTO) 81.2 % (42-78); TOTAL CELLS COUNTED % (AUTO) 100 %; WHITE BLOOD COUNT 10.3 10^3/uL (4.0-10.5)
[2018-12-11 07:58] LABS: BLOOD UREA NITROGEN 8 mg/dL (7-20); CARBON DIOXIDE 27 mmol/L (22-30); CHLORIDE 106 mmol/L (98-107); GLUCOSE 105 mg/dL (75-110); POTASSIUM 4.2 mmol/L (3.6-5.0); SODIUM 137.1 mmol/L (137-145)
[2018-12-11 07:59] LABS: ANION GAP 4 (5-19)
[2018-12-11 08:13] LABS: URINE SPECIFIC GRAVITY 1.007
[2018-12-11 08:14] LABS: APPEARANCE,URINE HAZY; BILIRUBIN,URINE NEGATIVE (NEGATIVE); COLOR,URINE STRAW; GLUCOSE, URINE NEGATIVE (NEGATIVE); KETONES,URINE NEGATIVE (NEGATIVE); NITRITE,URINE NEGATIVE (NEGATIVE); PROTEIN,URINE NEGATIVE (NEGATIVE); UROBILINOGEN,URINE NEGATIVE mg/dL (<2.0)
[2018-12-11 08:15] LABS: LEUKOCYTE ESTERASE,URINE LARGE (NEGATIVE)
[2018-12-11] MEDS ORDERED: CEFTRIAXONE 1 GM/D5W RTU 1 GM/50 ML RTUPB IV ONE (08:50)
--- NOTE | 2018-12-11 09:17 | ER Document Report ---
ED General - General Chief Complaint: Flank Pain Stated Complaint: BACK PAIN Time Seen by Provider: 12/11/18 07:16 TRAVEL OUTSIDE OF THE [place] IN LAST 30 DAYS: No - HPI Notes: Patient is a 28-year-old female who presents to the emergency department for evaluation of left flank pain, nausea. She states that several days ago she developed dysuria and urinary frequency. This morning she woke with a low-grade fever, nausea. She states her temperature has been as high as 101 F. No emesis. No gross blood in her urine. She denies any vaginal discharge. - Related Data Allergies/Adverse Reactions: No Known Allergies Allergy (Verified 07/28/18 14:07) Past Medical History - General Information source: Patient - Social History Smoking Status: Current Every Day Smoker Family History: Reviewed & Not Pertinent, CAD, Hyperlipidemia, Hypertension, Malignancy Patient has suicidal ideation: No Patient has homicidal ideation: No Renal/ Medical History: Denies: Hx Peritoneal Dialysis GI Medical History: Denies: Hx Hiatal Hernia, Hx Ulcer Psychiatric Medical History: Reports: Hx Bipolar Disorder - no meds, Hx Depression - no meds Past Surgical History: Reports: Hx Breast Surgery - biopsy, Hx Section - 06/24/14 - Immunizations Immunizations up to date: Yes Hx Diphtheria, Pertussis, Tetanus Vaccination: Yes - 2014 Review of Systems - Review of Systems Constitutional: See HPI EENT: No symptoms reported Cardiovascular: No symptoms reported Respiratory: No symptoms reported Gastrointestinal: See HPI Genitourinary: See HPI Female Genitourinary: No symptoms reported Musculoskeletal: No symptoms reported Skin: No symptoms reported Neurological/Psychological: No symptoms reported Physical Exam - Vital signs Vitals: Temp Pulse Resp BP Pulse Ox 99.6 F 90 18 130/72 H 97 12/11/18 07:32 12/11/18 07:32 12/11/18 07:32 12/11/18 07:32 12/11/18 07:32 - Notes Notes: Vital signs reviewed, please refer to chart. Head is normocephalic, atraumatic. Pupils equal round, reactive to light. Neck is supple without meningismus. Heart is regular rate and rhythm. Lungs are clear to auscultation bilaterally. Abdomen is soft, nontender, normoactive bowel sounds throughout. Mild left- sided CVA tenderness. Extremities without cyanosis, clubbing. Posterior calves are nontender. Peripheral pulses are equal. Skin is warm and dry. Patient is awake, alert, neurological exam is nonfocal. Course - Re-evaluation Re-evalutation: 12/11/18 09:14 Patient presents emergency department for evaluation of dysuria, fever, flank pain. She has not had emesis, but certainly she meets criteria for pyelonephritis diagnosis. This is a young female without any significant medical issues. She is afebrile here. She has no significant leukocytosis. She is given a dose of IV ceftriaxone here. We will send her home with pre scription for Cipro. The importance of taking all of this medication until gone was stressed to the patient. Urine was sent for culture, blood cultures obtained as well. She is feeling improved after IV fluids, Toradol, Zofran. I will send her home with Zofran as well. She is told if she develops fever longer than 24 hours, vomiting, or any other new or concerning symptoms, she needs to return to the emergency department for evaluation. Otherwise she is to follow-up with her primary care physician this week. - Vital Signs Vital signs: Temp Pulse Resp BP Pulse Ox 99.6 F 90 18 130/72 H 97 12/11/18 07:32 12/11/18 07:32 12/11/18 07:32 12/11/18 07:32 12/11/18 07:32 - Laboratory Result Diagrams: 12/11/18 07:26 12/11/18 07:26 Laboratory results interpreted by me: 12/11/18 12/11/18 12/11/18 07:26 07:26 07:35 Seg Neutrophils % 81.2 H Lymphocytes % 9.4 L Absolute Neutrophils 8.4 H Anion Gap 4 L Calcium 8.0 L Urine Blood SMALL H Ur Leukocyte Esterase LARGE H Discharge - Discharge Clinical Impression: Pyelonephritis of left kidney Condition: Stable Disposition: HOME, SELF-CARE Instructions: Ciprofloxacin ([facility]), Toradol Injection ([facility]), Pyelonephritis ([facility]) Additional Instructions: Take all of the Cipro as directed until gone. Zofran as needed for nausea. Rest, stay well-hydrated. If you develop fever for greater than 24 hours, vomiting, or any other new or concerning symptoms, return immediately to the emergency department for evaluation.
[2018-12-11] MEDS ORDERED: ACETAMINOPHEN 325 MG TABLET PO ONE (09:43)
[2018-12-11] MEDS ORDERED: ACETAMINOPHEN 325 MG TABLET ONE (09:44)
[2018-12-11 09:48] VITALS: BP 90/41
== END 2018-12-11 09:50 | disposition home or self-care (01) ==
LOC: ER 06:25
DX: N12 Tubulo-interstitial nephritis, not specified as acute or chronic (principal); R10.9 Unspecified abdominal pain; R11.0 Nausea; R50.9 Fever, unspecified; R30.0 Dysuria; F17.200 Nicotine dependence, unspecified, uncomplicated
CPT/HCPCS: 99284; 96361; 96375; 96365; 36415; 87040; 87086; 85025; 81025; 87077; 87088; 80048; 81001; 87186; J1885; J2405; J7030; J0696

== ENCOUNTER 2018-12-13 07:11 | Emergency (ER) | payer SELFPAY ==
[2018-12-13] MEDS ORDERED: ONDANSETRON HCL INJ/PF 4 MG/2 ML SDV IV ONE (09:25)
[2018-12-13] MEDS ORDERED: NORMAL SALINE 1000 ML 1,000 ML IV ONE (09:25)
[2018-12-13] MEDS ORDERED: KETOROLAC TROMETHAMINE INJ/PF 30 MG/1 ML SDV IV ONE (09:25)
--- NOTE | 2018-12-13 09:31 | ER Document Report ---
ED Medical Screen (RME) - General Chief Complaint: Flank Pain Stated Complaint: FLANK PAIN Time Seen by Provider: 12/13/18 09:23 Mode of Arrival: Ambulatory Information source: Patient Notes: 28-year-old female presented to ED for left flank pain. She states she was seen a couple days ago and started on antibiotics. She states the pain seemed to be getting better but now is worse again so she came back to the emergency room. States she had some nausea but no vomiting. She states she has had a bilateral tubal ligation and her last menstrual cycle was a week ago. She does smoke half pack a day and drinks occasionally. She states she was diagnosed with pyelonephritis December 11. She was started on Cipro and Zofran. I have greeted and performed a rapid initial assessment of this patient. A comprehensive ED assessment and evaluation of the patient, analysis of test results and completion of medical decision making process will be conducted by an additional ED providers. Dictation of this chart was performed using voice recognition software; therefore, there may be some unintended grammatical errors. TRAVEL OUTSIDE OF THE [place] IN LAST 30 DAYS: No - Related Data Allergies/Adverse Reactions: No Known Allergies Allergy (Verified 12/13/18 07:31) Past Medical History - Social History Chew tobacco use (# tins/day): No Frequency of alcohol use: Occasional Renal/ Medical History: Denies: Hx Peritoneal Dialysis GI Medical History: Reports: Hx Gastroesophageal Reflux Disease - c preg. Denies: Hx Hiatal Hernia, Hx Ulcer Psychiatric Medical History: Reports: Hx Bipolar Disorder - no meds, Hx Depression - no meds Past Surgical History: Reports: Hx Breast Surgery - biopsy, Hx Section - 06/24/14 - Immunizations Immunizations up to date: Yes Hx Diphtheria, Pertussis, Tetanus Vaccination: Yes - 2014 Physical Exam - Vital signs Vitals: Temp Pulse Resp BP Pulse Ox 99.0 F 72 20 106/69 96 12/13/18 07:48 12/13/18 07:48 12/13/18 07:48 12/13/18 07:48 12/13/18 07:48 Course - Vital Signs Vital signs: Temp Pulse Resp BP Pulse Ox 98.0 F 72 16 149/76 H 97 12/13/18 07:53 12/13/18 07:53 12/13/18 07:53 12/13/18 07:53 12/13/18 07:53
[2018-12-13 09:57] LABS: ABSOLUTE EOSINOPHILS # (AUTO) 0.1 10^3/uL (0.0-0.6); ABSOLUTE LYMPHOCYTES (AUTO) 1.1 10^3/uL (0.5-4.7); ABSOLUTE MONOCYTES (AUTO) 0.7 10^3/uL (0.1-1.4); ABSOLUTE NEUT (AUTO) 6.6 10^3/uL (1.7-8.2); BASOPHILS % (AUTO) 0.4 % (0-2); EOSINOPHILS % (AUTO) 0.8 % (0-6); HEMATOCRIT 39.7 % (36.0-47.0); HEMOGLOBIN 13.4 g/dL (12.0-15.5); MEAN CORPUSCULAR HEMOGLOBIN 31.6 pg (27.0-33.4); MEAN CORPUSCULAR HGB CONC 33.7 g/dL (32.0-36.0); MEAN CORPUSCULAR VOLUME 94 fl (80-97); PLATELET COUNT 228 10^3/uL (150-450); RED BLOOD COUNT 4.23 10^6/uL (3.72-5.28); SEGMENTED NEUTROPHILS % (AUTO) 77.8 % (42-78); TOTAL CELLS COUNTED % (AUTO) 100 %; WHITE BLOOD COUNT 8.4 10^3/uL (4.0-10.5)
--- NOTE | 2018-12-13 10:06 | ER Document Report ---
HPI - HPI Patient complains to provider of: left flank pain Time Seen by Provider: 12/13/18 09:23 Pain Level: 3 Context: 28-year-old female with the listed pmh, here for worsening left flank pain over the last day. She was seen and evaluated here 2 days ago and diagnosed with pyelonephritis. She was started on Cipro. She states since she has started taking this medication her urinary symptoms have improved; however, the pain got a little worse today so she came in for evaluation. She states she took Tylenol prior to arrival and the pain has now nearly eased off since she has been here and she is requesting to go home. Denies any fever, vomiting, vaginal complaints, abdominal pain, concerns for stds, or prior history of renal stones. She denies . She had a remote tubal ligation and 2 C-sections no other abd surgeries. She endorses normal bowel movements. No spinal surgeries. Denies IV drug use. She denies any fall or trauma. she is able to walk. She does state the pain in her back is worse with movement and palpation. No other complaints at this time. No history of diabetes or asthma otherwise. no other recent abx or steroids. no rash. no hx of this before. hasn't otherwise sought care until now. Similar symptoms previously: No Recently seen / treated by doctor: Yes - ROS Systems Reviewed and Negative: Yes All other systems reviewed and negative - to include 10, unless mentioned in the hpi - REPRODUCTIVE LMP: last wk Reproductive: DENIES: : - DERM Skin Color: Normal Past Medical History - General Information source: Patient - Social History Smoking Status: Current Every Day Smoker Chew tobacco use (# tins/day): No Frequency of alcohol use: Occasional Drug Abuse: Other - unknown. pt denies Family History: Reviewed & Not Pertinent, CAD, Hyperlipidemia, Hypertension, Malignancy Patient has suicidal ideation: No Patient has homicidal ideation: No Renal/ Medical History: Denies: Hx Peritoneal Dialysis GI Medical History: Reports: Hx Gastroesophageal Reflux Disease - during previous -not currently. Denies: Hx Hiatal Hernia, Hx Ulcer Psychiatric Medical History: Reports: Hx Bipolar Disorder - no meds-stable, Hx Depression - no meds-stable Past Surgical History: Reports: Hx Breast Surgery - biopsy, Hx Section - 06/24/14, Hx Tubal Ligation - Immunizations Immunizations up to date: Yes Hx Diphtheria, Pertussis, Tetanus Vaccination: Yes - 2014 [facility] Provider Document - CONSTITUTIONAL Notes: >>>> PHYSICAL_EXAM: GENERAL_APPEARANCE: well_nourished, alert, cooperative, no_acute_distress, no_obvious_discomfort. Pleasant, young white female, smiling, speaking in full sentences, in no sign of pain or resp distress, easily sitting up VITALS: reviewed, see vital signs table. HEAD: normocephalic, atraumatic. no sawyer signs. no raccoon eyes. EYES: PERRL, EOMI, (-)scleral icterus. NOSE: no_nasal_discharge. MOUTH: (-)decreased moisture. THROAT: no_tonsilar_inflammation/hypertrophy/exudate NECK: supple, no_neck_tenderness, full rom. full strength. no meningeal signs. no sign of central cord syndrome BACK: no midline_back_tenderness. no step offs or deformities, mild ttp of upper left paralumbar musculature. spasm noted. palpation here somewhat reproduces pts back pain exactly. no overlying skin changes, rash, or signs of trauma. CHEST_WALL: no_chest_tenderness. LUNGS: no_wheezing, (-)accessory muscle use, good air exchange bilateral. HEART: normal_rate, normal_rhythm, ABDOMEN: normal_BS, soft, abdomen-diffuse, non-tender, (-)guarding, (-)rebo und, no distension or peritoneal signs. neg murphys. neg mcburneys. no cva tenderness on the right. questionable to no cva ttp on the left PELVIC: deferred by pt RECTAL: deferred; however, no sign of loss of bowel or bladder, no soiling of clothing EXTREMITIES: strength 5/5 in all_extremities, good pulses in all_extremities, no_edema, no_swelling\tenderness. full rom. normal gait, brisk cap refill. 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 no shortening or rotation of the limbs. no obvious deformities. SKIN: warm, dry, good_color, no_rash. no grossly visible overlying skin changes to suggest trauma. NEURO: motor_intact, sensory_intact. cranial nerves 2-12 intact, cerebellar fxn intact MENTAL_STATUS: normal_affect, speech_clear, oriented_X_3, responds_appropriately to questions. - INFECTION CONTROL TRAVEL OUTSIDE OF THE [place] IN LAST 30 DAYS: No Course - Re-evaluation Re-evalutation: 12/13/18 12:29 Patient here for worsening left flank pain; however, symptoms improved with fluids, zofran, and Toradol here tonight and pt is pain and nausea controlled and tolerating po. nontoxic in appearance. she endorses compliance with the cipro she was prescribed here 2 days ago for likely pyelo; however, didn't start it until yesterday. Patient was evaluated here 2 days ago for the same and her labs have actually improved today compared to 2 days ago which i reviewed. Her triage CT stone survey was negative per radiology and reviewed by myself. Her urine culture from 2 days ago that i reviewed does show susceptibility to the Cipro the patient was placed on. Her pain is somewhat reproducible on exam she is very well-appearing and nontoxic in appearance. She is afebrile and tolerating p.o. She has no abdominal ttp on exam. she denies any vaginal complaints and states the uti sx are improving. Advised patient she needs to continue to take the Cipro to completion without fail. Patient informed of her findings. Advised [id number] medication as needed for any pain. Push f luids. sx could also be a component of lumbago as it is also reproducible with movement and palpation in the left paralumbar musculature. no overlying skin changes. no rash to suggest shingles. repeat ucx pending. advised will call with any results that require change in plan of care. Follow-up with PCP/urology in 1 to 2 days. Return for any worsening symptoms. Patient understands and agrees with plan. Patient also seen and evaluated by ED attending, Dr. Altman, who directed and agrees with plan of care and advised no further workup indicated at this time and pt stable for dc home with close f/u with pcp/urology. pt is afebrile. neurononfocal. no sign of cauda equina, spinal cord involvement, or central cord syndrome. vss. well appearing tolerating po. nontoxic on multiple rechecks. On reexam, pt improved with tx listed. feels much better and would like to go home. vss. well appearing. tolerating po. pain and nausea controlled. neurononfocal. Documentation achieved through voice recording which my lead to some occasional accidental typographical errors. Extensive efforts have been made to proof read documentation to make sure these are the least as possible. 12/13/18 12:31 Category Date Time Status CT ABD/PELVIS NO ORAL OR IV [CT] Stat Exams 12/13/18 09:24 Completed ADD ON [ADD ON TESTING BLD IN LAB] [CHEM] Stat Lab 12/13/18 09:43 Completed CBC WITH DIFF [HEME] Stat Lab 12/13/18 09:43 Completed COMPREHENSIVE METABOLIC PANEL [CHEM] Stat Lab 12/13/18 09:43 Completed HCG QUALITATIVE, URINE [URIN] Stat Lab 12/13/18 09:43 Completed LIPASE [CHEM] Stat Lab 12/13/18 09:43 Completed URINALYSIS [URIN] Stat Lab 12/13/18 09:43 Completed URINE CULTURE [MC] Stat Lab 12/13/18 09:43 Completed Ketorolac Tromethamine [Toradol Inj/Pf 30 mg/1 ml Sdv] Med 12/13/18 09:25 Discontinued 30 mg IV NOW ONE Normal Saline 1000 ml [NaCl 0.9% 1000 ml IV Soln] 1,000 Med 12/13/18 09:25 Discontinued ml IV BOLUS Ondansetron HCl/Pf [Zofran Inj/Pf 4 mg/2 ml Sdv] Med 12/13/18 09:25 Discontinued 8 mg IV NOW ONE - Vital Signs Vital signs: Temp Pulse Resp BP Pulse Ox 98.0 F 72 16 149/76 H 97 12/13/18 07:53 12/13/18 07:53 12/13/18 07:53 12/13/18 07:53 12/13/18 07:53 Temp Pulse Pulse Resp BP BP Pulse Ox 12/13/18 13:13 98.4 F 62 16 116/70 100 12/13/18 11:00 98.6 F 60 16 112/63 12/13/18 07:53 98.0 F 72 16 149/76 H 97 12/13/18 07:48 99.0 F 72 20 106/69 96 - Laboratory Result Diagrams: 12/13/18 09:43 12/13/18 09:43 Laboratory results interpreted by me: 12/13/18 12:29 Labs- Entire Visit 12/13/18 12/13/18 12/13/18 09:43 09:43 09:43 WBC 8.4 RBC 4.23 Hgb 13.4 Hct 39.7 MCV 94 MCH 31.6 MCHC 33.7 RDW 13.0 Plt Count 228 Seg Neutrophils % 77.8 Lymphocytes % 13.0 Monocytes % 8.0 Eosinophils % 0.8 Basophils % 0.4 Absolute Neutrophils 6.6 Absolute Lymphocytes 1.1 Absolute Monocytes 0.7 Absolute Eosinophils 0.1 Absolute Basophils 0.0 Sodium 138.7 Potassium 4.4 Chloride 103 Carbon Dioxide 29 Anion Gap 7 BUN 13 Creatinine 0.75 Est GFR ( Amer) > 60 Est GFR (Non-Af Amer) > 60 Glucose 151 H Calcium 8.4 Total Bilirubin 0.2 Direct Bilirubin 0.2 Neonat Total Bilirubin Not Reportable Neonat Direct Bilirubin Not Reportable Neonat Indirect Bili Not Reportable AST 16 ALT 17 Alkaline Phosphatase 49 Total Protein 5.4 L Albumin 2.9 L Lipase Urine Color STRAW Urine Appearance CLEAR Urine pH 6.0 Ur Specific [place] 1.010 Urine Protein NEGATIVE Urine Glucose (UA) NEGATIVE Urine Ketones NEGATIVE Urine Blood NEGATIVE Urine Nitrite NEGATIVE Urine Bilirubin NEGATIVE Urine Urobilinogen NEGATIVE Ur Leukocyte Esterase NEGATIVE Urine WBC (Auto) 8 Urine RBC (Auto) 1 Squamous Epi Cells Auto 1 Urine Ascorbic Acid NEGATIVE Urine HCG, Qual 12/13/18 12/13/18 09:43 09:43 WBC RBC Hgb Hct MCV MCH MCHC RDW Plt Count Seg Neutrophils % Lymphocytes % Monocytes % Eosinophils % Basophils % Absolute Neutrophils Absolute Lymphocytes Absolute Monocytes Absolute Eosinophils Absolute Basophils Sodium Potassium Chloride Carbon Dioxide Anion Gap BUN Creatinine Est GFR ( Amer) Est GFR (Non-Af Amer) Glucose Calcium Total Bilirubin Direct Bilirubin Neonat Total Bilirubin Neonat Direct Bilirubin Neonat Indirect Bili AST ALT Alkaline Phosphatase Total Protein Albumin Lipase 55.5 Urine Color Urine Appearance Urine pH Ur Specific [place] Urine Protein Urine Glucose (UA) Urine Ketones Urine Blood Urine Nitrite Urine Bilirubin Urine Urobilinogen Ur Leukocyte Esterase Urine WBC (Auto) Urine RBC (Auto) Squamous Epi Cells Auto Urine Ascorbic Acid Urine HCG, Qual NEGATIVE - Diagnostic Test Radiology reviewed: Image reviewed, Reports reviewed Radiology results interpreted by me: 12/13/18 12:29 Abdomen/Pelvis CT 12/13/18 09:24 IMPRESSION: NO SIGNIFICANT OR ACUTE PROCESS IN THE ABDOMEN OR PELVIS. Discharge - Discharge Clinical Impression: Left-sided back pain Qualifiers: Back pain location: back pain in unspecified location Chronicity: acute Qualified Code(s): M54.9 - Dorsalgia, unspecified UTI (urinary tract infection) Qualifiers: Urinary tract infection type: site unspecified Hematuria presence: without hematuria Qualified Code(s): N39.0 - Urinary tract infection, site not specified Condition: Stable Disposition: HOME, SELF-CARE Instructions: Urinary Tract Infection ([facility]) Additional Instructions: Follow-up with PCP 1 to 2 days. Return for any worsening symptoms. Continue to take the Cipro as prescribed to completion without fail. Drink plenty of fluids. Tylenol as needed for any pain. Ice/heat to your back. Forms: Return to Work
[2018-12-13 10:22] LABS: APPEARANCE,URINE CLEAR; BILIRUBIN,URINE NEGATIVE (NEGATIVE); COLOR,URINE STRAW; GLUCOSE, URINE NEGATIVE (NEGATIVE); KETONES,URINE NEGATIVE (NEGATIVE); LEUKOCYTE ESTERASE,URINE NEGATIVE (NEGATIVE); NITRITE,URINE NEGATIVE (NEGATIVE); PROTEIN,URINE NEGATIVE (NEGATIVE); UROBILINOGEN,URINE NEGATIVE mg/dL (<2.0)
--- NOTE | 2018-12-13 10:24 | RADIOLOGY REPORT (SQ) ---
EXAM DESCRIPTION: CT ABD/PELVIS NO ORAL OR IV COMPLETED DATE/TIME: 12/13/2018 9:42 am REASON FOR STUDY: Left flank pain COMPARISON: None. TECHNIQUE: CT scan of the abdomen and pelvis performed without intravenous or oral contrast. Images reviewed with lung, soft tissue, and bone windows. Reconstructed coronal and sagittal MPR images revi ewed. All images stored on PACS. All CT scanners at this facility use dose modulation, iterative reconstruction, and/or weight based d osing when appropriate to reduce radiation dose to as low as reasonably achievable (ALARA). [facility]: Dose Right [facility]: CareDose [facility]: Dose Right [facility]: Teradose 4D [facility]: Smart Cinetraffic RADIATION DOSE: CT Rad equipment meets quality standard of care and radiation dose reduction techniq ues were employed. CTDIvol: 5.3 mGy. DLP: 302 mGy-cm.mGy. LIMITATIONS: Slender patient, limited body fat and mesenteric fat. FINDINGS: LOWER CHEST: No significant findings. No nodules or infiltrates. NON-CONTRASTED LIVER, SPLEEN, ADRENALS: Evaluation limited by lack of IV contrast. No identified sign ificant masses. PANCREAS: No masses. No peripancreatic inflammatory changes. GALLBLADDER: No identified stones by CT criteria. No inflammatory changes to suggest cholecystitis. RIGHT KIDNEY AND URETER: No suspicious masses. Assessment limited by lack of IV contrast. No signif icant calcifications. No hydronephrosis or hydroureter. LEFT KIDNEY AND URETER: No suspicious masses. Assessment limited by lack of IV contrast. No signifi cant calcifications. No hydronephrosis or hydroureter. AORTA AND RETROPERITONEUM: No aneurysm. No retroperitoneal masses or adenopathy. BOWEL AND PERITONEAL CAVITY: No obvious masses or inflammatory changes. No free fluid. Large amount of stool throughout the colon. APPENDIX: Normal. PELVIS, BLADDER, AND ABDOMINAL WALL:No abnormal masses. No free fluid. Bladder normal. Normal size f emale pelvic organs. BONES: No significant findings. OTHER: No other significant finding. IMPRESSION: NO SIGNIFICANT OR ACUTE PROCESS IN THE ABDOMEN OR PELVIS. COMMENT: Quality ID # [id number]: Final reports with documentation of one or more dose reduction techniques (e.g., Automated exposure control, adjustment of the mA and/or kV according to patient size, use of iterative reconstruction technique) TECHNICAL DOCUMENTATION: JOB ID: [id number] [employer]- All Rights Reserved Reading location - IP/workstation name: [email or web address]
[2018-12-13 10:26] LABS: ALANINE AMINOTRANSFERASE 17 U/L (9-52); ALBUMIN 2.9 g/dL (3.5-5.0); ALKALINE PHOSPHATASE 49 U/L (38-126); ANION GAP 7 (5-19); ASPARTATE AMINO TRANSFERASE 16 U/L (14-36); BILIRUBIN,DIRECT 0.2 mg/dL (0.0-0.4); BILIRUBIN,TOTAL 0.2 mg/dL (0.2-1.3); BLOOD UREA NITROGEN 13 mg/dL (7-20); CALCIUM 8.4 mg/dL (8.4-10.2); CARBON DIOXIDE 29 mmol/L (22-30); CHLORIDE 103 mmol/L (98-107); GLUCOSE 151 mg/dL (75-110); POTASSIUM 4.4 mmol/L (3.6-5.0); TOTAL PROTEIN 5.4 g/dL (6.3-8.2)
--- NOTE | 2018-12-13 11:28 | ER Document Report ---
Doctor's Note Notes: 12/13/18 11:25 Patient was seen in conjunction with the physician occupational therapist's assistant. Please see her note correlate with mine. In short I saw this patient on December 11. She was diagnosed with pyelonephritis. She has been taking antibiotics as prescribed. She had an increase in her left flank pain today. She came in for evaluation. She was afebrile. No leukocytosis. Negative CT. On exam she has no real CVA tenderness that I can appreciate. The patient was notified that her blood cultures did grow gram-negative rods. Susceptibility confirmed the utility of Cipro. Recent is informed that she needs to take all of the antibiotics as prescribed until they are gone. She voiced understanding to this. He is to return to the ED with worsening.
[2018-12-13 13:17] VITALS: BP 116/70
== END 2018-12-13 13:18 | disposition home or self-care (01) ==
LOC: ER 07:11
DX: N12 Tubulo-interstitial nephritis, not specified as acute or chronic (principal); M62.830 Muscle spasm of back; R10.9 Unspecified abdominal pain; F17.200 Nicotine dependence, unspecified, uncomplicated; M54.9 Dorsalgia, unspecified
CPT/HCPCS: 99284; 96361; 96374; 96375; 36415; 87086; 83690; 85025; 81025; 80053; 81001; 74176; J1885; J2405; J7030

== ENCOUNTER 2018-12-28 16:24 | Emergency (ER) | payer SELFPAY ==
[2018-12-28 16:33] VITALS: BP 106/62
== END 2018-12-28 16:38 | disposition left against medical advice (07) ==
LOC: ER 16:24
DX: Z53.21 Procedure and treatment not carried out due to patient leaving prior to being seen by health care provider (principal)

== ENCOUNTER 2018-12-28 20:42 | Emergency (ER) | payer SELFPAY ==
[2018-12-29 01:03] LABS: APPEARANCE,URINE SLIGHTLY-CLOUDY; BILIRUBIN,URINE NEGATIVE (NEGATIVE); COLOR,URINE YELLOW; GLUCOSE, URINE NEGATIVE (NEGATIVE); KETONES,URINE TRACE mg/dL (NEGATIVE); LEUKOCYTE ESTERASE,URINE TRACE (NEGATIVE); NITRITE,URINE NEGATIVE (NEGATIVE); PROTEIN,URINE 30 mg/dL (NEGATIVE); URINE SPECIFIC GRAVITY 1.024; UROBILINOGEN,URINE NEGATIVE mg/dL (<2.0)
[2018-12-29 01:07] LABS: ABSOLUTE BASOPHILS # (AUTO) 0.1 10^3/uL (0.0-0.2); ABSOLUTE EOSINOPHILS # (AUTO) 0.2 10^3/uL (0.0-0.6); ABSOLUTE LYMPHOCYTES (AUTO) 2.6 10^3/uL (0.5-4.7); ABSOLUTE MONOCYTES (AUTO) 0.7 10^3/uL (0.1-1.4); BASOPHILS % (AUTO) 1.1 % (0-2); EOSINOPHILS % (AUTO) 2.9 % (0-6); HEMATOCRIT 39.8 % (36.0-47.0); HEMOGLOBIN 13.5 g/dL (12.0-15.5); LYMPHOCYTES % (AUTO) 34.1 % (13-45); MEAN CORPUSCULAR HEMOGLOBIN 31.2 pg (27.0-33.4); MEAN CORPUSCULAR HGB CONC 33.9 g/dL (32.0-36.0); MEAN CORPUSCULAR VOLUME 92 fl (80-97); MONOCYTES % (AUTO) 9.6 % (3-13); PLATELET COUNT 404 10^3/uL (150-450); RED BLOOD COUNT 4.32 10^6/uL (3.72-5.28); SEGMENTED NEUTROPHILS % (AUTO) 52.3 % (42-78); TOTAL CELLS COUNTED % (AUTO) 100 %; WHITE BLOOD COUNT 7.6 10^3/uL (4.0-10.5)
[2018-12-29] MEDS ORDERED: ONDANSETRON 4 MG TAB.RAPDIS PO ONE (01:21)
[2018-12-29] MEDS ORDERED: ONDANSETRON ODT 4 MG TAB (6 TAB/ER DISP) PO PRN (01:21)
--- NOTE | 2018-12-29 01:24 | ER Document Report ---
HPI - HPI Patient complains to provider of: Nausea vomiting and diarrhea Pain Level: Denies Context: Patient is a 28-year-old female that comes to the emergency department for chief complaint of vomiting that started in the morning, she vomited throughout the day, had 2 loose stools, then she actually started feeling better. She states that she was told she needs a work note to return to work. She states that her significant other was also vomiting, she states they think they were food poisoning from their dinner last night. No recent travel, no recent antibio tics, no fever. She has had C-sections, denies medical history otherwise. - REPRODUCTIVE Reproductive: DENIES: : Past Medical History - General Information source: Patient - Social History Smoking Status: Never Smoker Drug Abuse: None Lives with: Family Family History: Reviewed & Not Pertinent, CAD, Hyperlipidemia, Hypertension, Malignancy Renal/ Medical History: Denies: Hx Peritoneal Dialysis GI Medical History: Reports: Hx Gastroesophageal Reflux Disease - c preg. Denies: Hx Hiatal Hernia, Hx Ulcer Psychiatric Medical History: Reports: Hx Bipolar Disorder - no meds, Hx Depression - no meds Past Surgical History: Reports: Hx Breast Surgery - biopsy, Hx Section - 06/24/14, Hx Tubal Ligation - Immunizations Immunizations up to date: Yes Hx Diphtheria, Pertussis, Tetanus Vaccination: Yes - 2014 [facility] Provider Document - CONSTITUTIONAL General Appearance: WD/WN, No Apparent Distress - INFECTION CONTROL TRAVEL OUTSIDE OF THE [place] IN LAST 30 DAYS: No - HEENT HEENT: Atraumatic, Normal ENT Exam, Normocephalic - NECK Neck: Normal Inspection - RESPIRATORY Respiratory: Breath Sounds Normal, No Respiratory Distress - CARDIOVASCULAR Cardiovascular: Regular Rate, Regular Rhythm - GI/ABDOMEN Gastrointestinal: Abdomen Soft, Abdomen Non-Tender. negative: Abdomen Tender, Abdominal Guarding - BACK Back: Normal Inspection - MUSCULOSKELETAL/EXTREMETIES Musculoskeletal/Extremeties: MAEW, FROM, Non-Tender - NEURO Level of Consciousness: Awake, Alert, Appropriate - DERM Integumentary: Warm, Dry, No Rash Course - Re-evaluation Re-evalutation: Patient reporting to me that her symptoms have essentially resolved, she states she just needs a work note. She will be provided with nausea medication for home as well. CBC, chemistry, urinalysis generally unremarkable except for evidence of some dehydration. test is negative. Abdomen is benign, vital signs unremarkable, patient is well-appearing. Patient will be discharged with return precautions. She states understanding and agreement. - Vital Signs Vital signs: Temp Pulse Resp BP Pulse Ox 97.8 F 94 12 107/54 L 96 12/28/18 21:01 12/28/18 21:01 12/28/18 21:01 12/28/18 21:01 12/28/18 21:01 - Laboratory Result Diagrams: 12/29/18 00:50 12/29/18 00:50 Laboratory results interpreted by me: 12/29/18 00:44 Urine Protein 30 H Urine Ketones TRACE H Urine Blood LARGE H Ur Leukocyte Esterase TRACE H Urine Ascorbic Acid 40 H Discharge - Discharge Clinical Impression: Nausea vomiting and diarrhea Condition: Stable Disposition: HOME, SELF-CARE Additional Instructions: Your work-up shows some dehydration but is otherwise unremarkable. It is unclear whether this is viral or if you ingested food toxin. Both should resolve with time. Take Zofran for nausea, drink plenty of fluids, start with bland food and progress. Follow-up with primary care. Return if you worsen including return vomiting, severe abdominal pain, fevers, or any other concerning symptoms. Prescriptions: Ondansetron [Zofran Odt 4 mg Tablet] 1 - 2 tab PO Q4H PRN #15 tab.rapdis PRN Reason: For Nausea/Vomiting Forms: Return to Work
[2018-12-29 01:26] LABS: ALANINE AMINOTRANSFERASE 18 U/L (9-52); ALBUMIN 3.2 g/dL (3.5-5.0); ALKALINE PHOSPHATASE 55 U/L (38-126); ANION GAP 5 (5-19); ASPARTATE AMINO TRANSFERASE 15 U/L (14-36); BLOOD UREA NITROGEN 12 mg/dL (7-20); CALCIUM 8.3 mg/dL (8.4-10.2); CARBON DIOXIDE 30 mmol/L (22-30); CHLORIDE 103 mmol/L (98-107); GLUCOSE 86 mg/dL (75-110); POTASSIUM 4.4 mmol/L (3.6-5.0); TOTAL PROTEIN 5.6 g/dL (6.3-8.2)
[2018-12-29 01:34] LABS: BILIRUBIN,DIRECT 0.2 mg/dL (0.0-0.4); BILIRUBIN,TOTAL 0.2 mg/dL (0.2-1.3)
[2018-12-29 01:51] VITALS: BP 110/62
== END 2018-12-29 01:51 | disposition home or self-care (01) ==
LOC: ER 20:42
DX: R11.2 Nausea with vomiting, unspecified (principal); R19.7 Diarrhea, unspecified; E86.0 Dehydration
CPT/HCPCS: 99283; 36415; 85025; 81025; 80053; 81001; S0119

== ENCOUNTER 2019-01-23 02:46 | Emergency (ER) | payer SELFPAY ==
[2019-01-23] MEDS ORDERED: PENICILLIN V POTASSIUM 500 MG TABLET PO ONE (03:44)
[2019-01-23] MEDS ORDERED: OXYCODONE-ACETAMINOPHEN 5-325 MG TABLET PO ONE (03:44)
--- NOTE | 2019-01-23 03:49 | ER Document Report ---
HPI - HPI Patient complains to provider of: dental pain Time Seen by Provider: 01/23/19 03:17 Onset: Other - 2 days Onset/Duration: Persistent Quality of pain: Achy Severity: Severe Pain Level: 4 Context: This 28-year-old female presents emergency department with complaints of left lower dental pain. Reports her tooth broke. Reports it aches all the time but especially when she chews on that side. Denies sensitivity to heat or cold. Denies other symptoms such as fever and vomiting. Patient does not have dental insurance. Associated Symptoms: None Exacerbated by: Food Relieved by: Denies Similar symptoms previously: No Recently seen / treated by doctor: No - REPRODUCTIVE Reproductive: DENIES: : - DERM Skin Color: Normal Past Medical History - General Information source: Patient Last Menstrual Period: current - Social History Smoking Status: Current Every Day Smoker Chew tobacco use (# tins/day): No Frequency of alcohol use: Rare Drug Abuse: None Lives with: Family Family History: Reviewed & Not Pertinent, CAD, Hyperlipidemia, Hypertension, Malignancy Patient has suicidal ideation: No Patient has homicidal ideation: No Renal/ Medical History: Denies: Hx Peritoneal Dialysis GI Medical History: Reports: Hx Gastroesophageal Reflux Disease - c preg. Denies: Hx Hiatal Hernia, Hx Ulcer Psychiatric Medical History: Reports: Hx Bipolar Disorder - no meds, Hx Depression - no meds Past Surgical History: Reports: Hx Breast Surgery - biopsy, Hx Section - x 3, Hx Tubal Ligation - Immunizations Immunizations up to date: Yes Hx Diphtheria, Pertussis, Tetanus Vaccination: Yes - 2014 [facility] Provider Document - CONSTITUTIONAL Agree With Documented VS: Yes Exam Limitations: No Limitations General Appearance: WD/WN, No Apparent Distress - INFECTION CONTROL TRAVEL OUTSIDE OF THE [place] IN LAST 30 DAYS: No - HEENT HEENT: Atraumatic, Normocephalic Mouth Diagram: 1 - Broken tooth, opens mouth wide good airway no trismus no erythema no swelling no pustule, no ludwigs - NECK Neck: Supple - RESPIRATORY Respiratory: No Respiratory Distress - CARDIOVASCULAR Cardiovascular: Regular Rate - MUSCULOSKELETAL/EXTREMETIES Musculoskeletal/Extremeties: MAEW, FROM - NEURO Level of Consciousness: Awake, Alert, Appropriate Motor/Sensory: No Motor Deficit - DERM Integumentary: Warm, Dry Course - Re-evaluation Re-evalutation: 01/23/19 03:48 This 28-year-old female with complaints of dental pain for 2 days was instructed on the [facility]. She was prescribed Pen-Vee K 1 Percocet while she was here and instructed to take ibuprofen for the pain from now on. She verbalized understanding to all instructions. Dictation of this chart was performed using voice recognition software; therefo re, there may be some unintended grammatical errors. - Vital Signs Vital signs: Temp Pulse Resp BP Pulse Ox 98.0 F 82 16 137/87 H 97 01/23/19 02:54 01/23/19 02:54 01/23/19 02:54 01/23/19 02:54 01/23/19 02:54 Discharge - Discharge Clinical Impression: Pain, dental Condition: Stable Disposition: HOME, SELF-CARE Instructions: [facility], Penicillin V K ([facility]), Toothache ([facility]) Additional Instructions: *You have been evaluated for dental pain *Take medication as prescribed Take ibuprofen as indicated for pain *Follow up with dentist Thursday *Return to ED for worsening condition, changes, needs Monitor your blood pressure. Your blood pressure was elevated today. This may be because you were anxious, in pain or because you need medication. It is important to follow up with your primary care provider for full evaluation. Prescriptions: Penicillin V Potassium [Penicillin Vk 500 mg Tablet] 500 mg PO BID #20 tablet Forms: Elevated Blood Pressure, Smoking Cessation Education
[2019-01-23 03:55] VITALS: BP 135/93
== END 2019-01-23 03:58 | disposition home or self-care (01) ==
LOC: ER 02:46
DX: K08.89 Other specified disorders of teeth and supporting structures (principal); S02.5XXA Fracture of tooth (traumatic), initial encounter for closed fracture; X58.XXXA Exposure to other specified factors, initial encounter; F17.200 Nicotine dependence, unspecified, uncomplicated
CPT/HCPCS: 99282

== ENCOUNTER 2019-02-26 18:20 | Emergency (ER) | payer SELFPAY ==
[2019-02-26 18:38] VITALS: BP 140/92
--- NOTE | 2019-02-26 18:59 | ER Document Report ---
HPI - HPI Patient complains to provider of: Dental pain Time Seen by Provider: 02/26/19 18:56 Onset: Yesterday Onset/Duration: Sudden Quality of pain: Achy Severity: Severe Pain Level: 5 Context: This 28-year-old female presents to the emergency department with complaints of right lower dental pain that started yesterday. Patient reports that she has found a dentist that was recommended via this emergency department and will follow up with them. She reports she did not have funds to follow-up for but now she has a job. She denies fever vomiting diarrhea. Patient is speaking a clear voice no facial swelling. Associated Symptoms: None Exacerbated by: Denies Relieved by: Denies Similar symptoms previously: Yes Recently seen / treated by doctor: No - REPRODUCTIVE Reproductive: DENIES: : Past Medical History - General Information source: Patient Last Menstrual Period: 2 weeks ago - Social History Smoking Status: Current Every Day Smoker Cigarette use (# per day): Yes Frequency of alcohol use: Occasional Occupation: [employer] Lives with: Family Family History: Reviewed & Not Pertinent, CAD, Hyperlipidemia, Hypertension, Malignancy Patient has suicidal ideation: No Patient has homicidal ideation: No Renal/ Medical History: Denies: Hx Peritoneal Dialysis GI Medical History: Reports: Hx Gastroesophageal Reflux Disease - c preg. Denies: Hx Hiatal Hernia, Hx Ulcer Psychiatric Medical History: Reports: Hx Bipolar Disorder - no meds, Hx Depression - no meds Past Surgical History: Reports: Hx Breast Surgery - biopsy, Hx Section - x 3, Hx Tubal Ligation - Immunizations Immunizations up to date: Yes Hx Diphtheria, Pertussis, Tetanus Vaccination: Yes - 2014 Vertical Provider Document - CONSTITUTIONAL Agree With Documented VS: Yes Exam Limitations: No Limitations General Appearance: WD/WN, No Apparent Distress - INFECTION CONTROL TRAVEL OUTSIDE OF THE [place] IN LAST 30 DAYS: No - HEENT HEENT: Atraumatic, Normocephalic. negative: Pharyngeal Erythema Mouth Diagram: 1 - Patient complains of pain no erythema no swelling noted clear voice good airway no trismus no ludwigs - NECK Neck: Normal Inspection, Supple. negative: Lymphadenopathy-Left, Lymphadenopathy-Right - RESPIRATORY Respiratory: Breath Sounds Normal, No Respiratory Distress - CARDIOVASCULAR Cardiovascular: Regular Rate - MUSCULOSKELETAL/EXTREMETIES Musculoskeletal/Extremeties: JOZEF PELLETIER - NEURO Level of Consciousness: Awake, Alert, Appropriate Motor/Sensory: No Motor Deficit - DERM Integumentary: Warm, Dry Course - Re-evaluation Re-evalutation: 02/26/19 19:02 This 28-year-old female presents emergency department with complaints of dental pain. Patient reports pain started last night she noticed a pimple around the tooth. Denies fever vomiting diarrhea. Patient does report that she is now connected with a dentist and will follow up with them. Dictation of this chart was performed using voice recognition software; therefore, there may be some unintended grammatical errors. - Vital Signs Vital signs: Temp Pulse Resp BP Pulse Ox 98.3 F 76 18 140/92 H 97 02/26/19 18:36 02/26/19 18:36 02/26/19 18:36 02/26/19 18:36 02/26/19 18:36 Discharge - Discharge Clinical Impression: Pain, dental Condition: Stable Disposition: HOME, SELF-CARE Instructions: Penicillin V K ([facility]), Toothache ([facility]) Additional Instructions: *You have been evaluated for dental pain *Take medication as prescribed *Follow up with dentist as scheduled *Return to ED for worsening condition, changes, needs Monitor your blood pressure. Your blood pressure was elevated today. This may be because you were anxious, in pain or because you need medication. It is important to follow up with your primary care provider for full evaluation. Prescriptions: Penicillin V Potassium [Penicillin Vk 500 mg Tablet] 500 mg PO BID #20 tablet Forms: Elevated Blood Pressure, Smoking Cessation Education
== END 2019-02-26 19:01 | disposition home or self-care (01) ==
LOC: ER 18:20
DX: K08.89 Other specified disorders of teeth and supporting structures (principal); F17.210 Nicotine dependence, cigarettes, uncomplicated

== ENCOUNTER 2019-06-23 00:59 | Emergency (ER) | payer SELFPAY ==
[2019-06-23 02:34] LABS: HEMOGLOBIN 12.9 g/dL (12.0-15.5); MEAN CORPUSCULAR HEMOGLOBIN 29.8 pg (27.0-33.4); MEAN CORPUSCULAR VOLUME 88 fl (80-97); PLATELET COUNT 295 10^3/uL (150-450); RED BLOOD COUNT 4.34 10^6/uL (3.72-5.28); RED CELL DISTRIBUTION WIDTH 16.4 % (11.5-14.0); WHITE BLOOD COUNT 7.8 10^3/uL (4.0-10.5)
[2019-06-23 02:35] LABS: APPEARANCE,URINE SLIGHTLY-CLOUDY; BILIRUBIN,URINE NEGATIVE (NEGATIVE); COLOR,URINE YELLOW; GLUCOSE, URINE NEGATIVE (NEGATIVE); KETONES,URINE NEGATIVE (NEGATIVE); LEUKOCYTE ESTERASE,URINE TRACE (NEGATIVE); NITRITE,URINE NEGATIVE (NEGATIVE); PROTEIN,URINE NEGATIVE (NEGATIVE); URINE SPECIFIC GRAVITY 1.013
[2019-06-23 02:57] LABS: ABSOLUTE LYMPHOCYTES# (MANUAL) 3.5 10^3/uL (0.5-4.7); ABSOLUTE MONOCYTES # (MANUAL) 0.2 10^3/uL (0.1-1.4); BAND NEUTROPHILS % (MANUAL) 2 % (3-5); BASOPHILS % (MANUAL) 0 % (0-2); EOSINOPHILS % (MANUAL) 2 % (0-6); LYMPHOCYTES % (MANUAL) 43 % (13-45); MONOCYTES % (MANUAL) 2 % (3-13); SEGMENTED NEUTROPHILS % (MAN) 49 % (42-78); TOTAL CELLS COUNTED 100
[2019-06-23 03:00] LABS: ALBUMIN 3.7 g/dL (3.5-5.0); ALKALINE PHOSPHATASE 183 U/L (38-126); ANION GAP 7 (5-19); ANISOCYTOSIS 1+; ASPARTATE AMINO TRANSFERASE 612 U/L (14-36); BILIRUBIN,DIRECT 0.8 mg/dL (0.0-0.4); BILIRUBIN,TOTAL 1.4 mg/dL (0.2-1.3); BLOOD UREA NITROGEN 13 mg/dL (7-20); CALCIUM 9.6 mg/dL (8.4-10.2); CARBON DIOXIDE 35 mmol/L (22-30); CHLORIDE 96 mmol/L (98-107); OVALOCYTES SLIGHT; PLATELET COMMENT ADEQUATE; TOTAL PROTEIN 7.4 g/dL (6.3-8.2)
[2019-06-23 03:14] LABS: GLUCOSE 68 mg/dL (75-110)
[2019-06-23] MEDS ORDERED: LIDOCAINE 1% INJ-PF (10 MG/ML) 30 ML SDV INJ ONE (05:05)
[2019-06-23] MEDS ORDERED: CEFTRIAXONE INJ 250 MG VIAL IM ONE (05:05)
[2019-06-23] MEDS ORDERED: METRONIDAZOLE 500 MG TABLET PO ONE (05:05)
[2019-06-23] MEDS ORDERED: AZITHROMYCIN 250 MG TABLET PO ONE (05:05)
[2019-06-23] MEDS ORDERED: PROMETHAZINE HCL 25 MG TABLET PO ONE (05:14)
[2019-06-23] MEDS ORDERED: DOXYCYCLINE HYCLATE 100 MG TABLET PO ONE (05:18)
--- NOTE | 2019-06-23 05:19 | ER Document Report ---
ED GI/ - General Chief Complaint: Pelvic Problem Stated Complaint: FEVER,POSSIBLE PAIN IN OVARY Time Seen by Provider: 06/23/19 04:50 Primary Care Provider: [facility] [Provider Group] - Follow up as needed [facility] [Provider Group] - Follow up as needed [facility] [Provider Group] - Follow up as needed [facility] [address] [Provider Group] - Follow up as needed [facility] [Provider Group] - Follow up as needed Mode of Arrival: Ambulatory Information source: Patient Notes: 29-year-old female presented to ED for complaint of vaginal discharge that is brown and foul-smelling with concentrated urine vomiting today. She states she is also had hot and cold chills all day. She states she is having pain with intercourse for at least a week now. I went in to examine the patient she stated she had to leave with 45 minutes. Labs were drawn before I went in to see her her liver enzymes were very elevated. She stated "she just go to a primary care and get seen because she really needed to leave it in 45 minutes. I have explained to the patient she is leaving AGAINST MEDICAL ADVICE if she leaves before the complete work-up is done. TRAVEL OUTSIDE OF THE [place] IN LAST 30 DAYS: No - HPI Patient complains to provider of: Abdominal pain, Pelvic pain, Vaginal discharge Onset: Last week Timing/Duration: Intermittent Quality of pain: Sharp Severity at maximum: Moderate Severity in ED: Mild Pain Level: 2 Location: Pelvis Associated symptoms: Nausea, Vaginal discharge, Vomiting, Other - Pelvic pain Exacerbated by: Movement, Other - Sexual intercourse Relieved by: Denies Similar symptoms previously: No Recently seen / treated by doctor: No - Related Data Allergies/Adverse Reactions: No Known Allergies Allergy (Verified 12/28/18 16:28) Home Medications: mvi. fish oil. potassium Past Medical History - General Information source: Patient - Social History Smoking Status: Current Every Day Smoker Cigarette use (# per day): Yes - Half pack per day Smoking Education Provided: Yes - Minutes Frequency of alcohol use: None Drug Abuse: None Lives with: Family Family History: Reviewed & Not Pertinent, CAD, Hyperlipidemia, Hypertension, Malignancy Patient has suicidal ideation: No Patient has homicidal ideation: No - Past Medical History Cardiac Medical History: Reports: None Pulmonary Medical History: Reports: None EENT Medical History: Reports: None Neurological Medical History: Reports: None Endocrine Medical History: Reports: None Renal/ Medical History: Reports: None Malignancy Medical History: Reports: None GI Medical History: Reports: Hx Gastroesophageal Reflux Disease - c preg Musculoskeletal Medical History: Reports None Skin Medical History: Reports None Psychiatric Medical History: Reports: Hx Bipolar Disorder - no meds, Hx Depression - no meds Traumatic Medical History: Reports: None Infectious Medical History: Reports: None Past Surgical History: Reports: Hx Breast Surgery - biopsy, Hx Section - x 3, Hx Tubal Ligation - Immunizations Immunizations up to date: Yes Hx Diphtheria, Pertussis, Tetanus Vaccination: Yes - 2014 Review of Systems - Review of Systems Constitutional: No symptoms reported EENT: No symptoms reported Cardiovascular: No symptoms reported Respiratory: No symptoms reported Gastrointestinal: Nausea, Vomiting Genitourinary: No symptoms reported Female Genitourinary: Vaginal discharge, Painful intercourse - Pelvic pain, Other Musculoskeletal: No symptoms reported Skin: No symptoms reported Hematologic/Lymphatic: No symptoms reported Neurological/Psychological: No symptoms reported -: Yes All other systems reviewed and negative Physical Exam - Vital signs Vitals: Temp Pulse Resp BP Pulse Ox 97.5 F 68 16 114/68 99 06/23/19 01:45 06/23/19 01:45 06/23/19 01:45 06/23/19 01:45 06/23/19 01:45 Interpretation: Normal - General General appearance: Appears well, Alert - HEENT Head: Normocephalic, Atraumatic Eyes: Normal Pupils: PERRL - Respiratory Respiratory status: No respiratory distress Chest status: Nontender Breath sounds: Normal Chest palpation: Normal - Cardiovascular Rhythm: Regular Heart sounds: Normal auscultation Murmur: No - Abdominal Inspection: Normal Distension: No distension Bowel sounds: Normal Tenderness: Nontender Organomegaly: No organomegaly - Genitourinary External exam: Normal Speculum exam: Vaginal discharge Vaginal bleeding: None Bimanuel exam: Cervical motion tender - Back Back: Normal, Nontender - Extremities General upper extremity: Normal inspection, Nontender, Normal color, Normal ROM, Normal temperature General lower extremity: Normal inspection, Nontender, Normal color, Normal ROM, Normal temperature, Normal weight bearing. No: Ivon's sign - Neurological Neuro grossly intact: Yes Cognition: Normal Orientation: AAOx4 [place] Coma Scale Eye Opening: Spontaneous [place] Coma Scale Verbal: Oriented Rebeca Coma Scale Motor: Obeys Commands [place] Coma Scale Total: 15 Speech: Normal Motor strength normal: LUE, RUE, LLE, RLE Sensory: Normal - Psychological Associated symptoms: Normal affect, Normal mood - Skin Skin Temperature: Warm Skin Moisture: Dry Skin Color: Normal Course - Re-evaluation Re-evalutation: 06/23/19 05:56 Pelvic exam was completed as well as a pelvic ultrasound and a upper abdominal u ltrasound and a second blood draw was completed for a hepatitis panel. Patient states she cannot wait for these results but she can follow-up with her primary doctor for these results. Patient was treated with doxycycline, Flagyl, and Rocephin IM for her vaginal discharge and pelvic pain. Patient was treated with Phenergan for her nausea and discharged home with a prescription for Flagyl and doxycycline. Patient is aware she is leaving AGAINST MEDICAL ADVICE as her ultrasounds are not resulted - Vital Signs Vital signs: Temp Pulse Resp BP Pulse Ox 97.6 F 62 16 106/62 96 06/23/19 06:00 06/23/19 06:00 06/23/19 06:00 06/23/19 06:00 06/23/19 06:00 - Laboratory Result Diagrams: 06/23/19 02:22 06/23/19 02:22 Laboratory results interpreted by me: 06/23/19 06/23/19 06/23/19 02:22 02:22 02:22 RDW 16.4 H Band Neutrophils % 2 L Monocytes % (Manual) 2 L Chloride 96 L Carbon Dioxide 35 H Glucose 68 L Total Bilirubin 1.4 H Direct Bilirubin 0.8 H AST 612 H Alkaline Phosphatase 183 H Urine Urobilinogen 4.0 H Ur Leukocyte Esterase TRACE H Discharge - Discharge Clinical Impression: Vaginal discharge, Pelvic pain, Elevated liver enzymes Condition: Stable Disposition: AGAINST MEDICAL ADVICE Additional Instructions: PELVIC PAIN: There are many causes of pain in the pelvic area. The cause could be the tubes, ovaries, uterus, intestines, appendix, pelvic muscles and connective tissue, or the urinary tract. The cause of your pelvic pain is not clear. However, it seems safe to treat you outside the hospital. If the pain sounds like a temporary problem, we sometimes wait to see if it goes away. Other patients may need additional tests, such as pelvic ultrasound or cultures. Conditions may change. Call us or come back for reexamination if any problems occur, such as: (1) Pain that becomes more severe, steady, or becomes concentrated in one specific area. Also, pain that is more severe with movement or coughing. (2) Vomiting that persists or becomes more frequent. (3) Blood in the vomitus, urine, or bowel movements. Blood in the stool may have a tarry or black appearance. (4) Shaking chills or fever greater than 100 degrees. (5) The abdomen becomes more distended or swollen. (6) Bowel movements cease. (7) Heavy vaginal bleeding. Liver Function Abnormality Your evaluation has shown an abnormality of your liver function. This may not be serious, but you need further testing. Abnormal liver function can be caused by alcohol, medicines, virus infections, heart failure, tumors, gallbladder problems, and many other diseases. But sometimes "abnormal" liver enzymes are "normal" -- it's just the way your liver works and there's nothing wrong. We need to be sure. If your doctor thinks the abnormal test was caused by alcohol, medicine, or a recent virus, we may just repeat the liver enzyme test later. Often, the test shows that the elevated enzymes are back to normal. Usually no treatment is necessary, except for avoiding the cause of the liver dysfunction (such as alcohol or a specific medicine). Further testing could include an ultrasound of the liver, liver scan, or perhaps a liver biopsy in difficult cases. Call the doctor if you become increasingly yellow, vomit repeatedly, begin to bruise or bleed easily, or have worsening abdominal pain. CEPHALOSPORINS: An antibiotic of the cephalosporin class has been prescribed. This type of antibiotic covers a wide variety of infections, including those of the skin, lungs, middle ear, and urinary tract. This antibiotic is somewhat similar to the penicillin family. In rare case s, a person who is allergic to penicillin will also be allergic to this medication. If you have had a severe allergic reaction to penicillin, and have not taken this antibiotic since that time, notify your doctor. Antibiotics which cover many germs ("broad spectrum" antibiotics) are more likely to cause diarrhea or "yeast" infections. Women prone to vaginal yeast problems may suffer an attack after taking this antibiotic. In infants, oral thrush (white spots "stuck" on the cheek) or yeast diaper rash may result. See your doctor if these problems occur. Call the doctor at once if you develop hives, itching, shortness of breath, or lightheadedness. DOXYCYCLINE: Doxycycline (Vibramycin, Doryx) is an antibiotic of the tetracycline family. This type of drug is useful for infections of the respiratory tract and genital tract, and is sometimes used for intestinal infections. Unlike most tetracyclines, doxycycline can be taken with food. It is longer acting, and (usually) less prone to side effects than regular tetracycline. Tetracycline antibiotics can stain immature teeth and SHOULD NOT BE TAKEN BY CHILDREN, NURSING MOTHERS, OR WOMEN. Tetracyclines can make you more prone to sunburn. Abdominal cramping, nausea, and diarrhea are occasional side effects. Women may experience vaginal yeast infections. Call the doctor at once if you develop hives, itching, shortness of breath, or lightheadedness. METRONIDAZOLE: Metronidazole (Flagyl) has been prescribed. This medication is used to kill a type of bacteria called anaerobes, and protozoan parasites such as trichomonas and Giardia. Flagyl often causes a metallic taste in the mouth and mild nausea. Do not use alcohol in any form with Flagyl (including alcohol in medication elixirs). Flagyl interacts with alcohol to cause flushing, palpitations, headache, stomach cramps, and vomiting. Do not use Flagyl if you are taking Antabuse (disulfiram). Call the doctor at once if you develop rash, shortness of breath, itching, or lightheadedness. Antinausea Medication You have been given a medication to suppress nausea and vomiting. This type of medication can be given as a shot, pill, or suppository. It will usually last for many hours. Pills and shots usually last six to eight hours, suppositories last about 12 hours. For the typical illness, only one or two doses of the medication may be necessary. Mild lightheadedness may occur. This type of medicine can cause drowsiness. Do not drive or operate dangerous machinery while under its influence. Do not mix with alcohol. See your doctor at once if you have muscle spasms or tightness, or uncontrollable motions (particularly of the neck, mouth, or jaw). Persistent vomiting or severe lightheadedness should also be evaluated by the physician. FOLLOW-UP CARE: If you have been referred to a physician for follow-up care, call the physicians office for an appointment as you were instructed or within the next two days. If you experience worsening or a significant change in your symptoms, notify the physician immediately or return to the Emergency Department at any time for re-evaluation. You are leaving AGAINST MEDICAL ADVICE. Your liver enzymes are very high. You also have pelvic pain with vaginal discharge. I have treated you with multiple antibiotics without knowing the exact diagnosis for the pelvic pain and discharge. I have done ultrasounds for the pelvic pain and for the elevated liver enzymes. It is very important that you follow-up with either a primary care or return to the ED for further evaluation for this elevated liver enzymes and to review the results of these test. Elevated liver enzymes can be a multiple problems and it is extremely important that you follow-up. Prescriptions: Doxycycline Hyclate 100 mg PO BID #14 capsule Metronidazole [Flagyl] 500 mg PO BID #14 tablet Forms: Smoking Cessation Education Referrals: [facility] [Provider Group] - Follow up as needed [facility] [Provider Group] - Follow up as needed [facility] [Provider Group] - Follow up as needed [facility] [Provider Group] - Follow up as needed [facility] [Provider Group] - Follow up as needed
[2019-06-23 06:03] VITALS: BP 106/62
[2019-06-23 06:08] LABS: BACTERIA (WET MOUNT) 3+ BACTERIA SEEN; RBCS (WET MOUNT) NO RBCS SEEN; T.VAGINALIS (WET MOUNT) NO TRICHOMONAS SEEN; WBCS (WET MOUNT) 1+ WBCS SEEN; YEAST (WET MOUNT) NO YEAST SEEN
--- NOTE | 2019-06-23 06:09 | RADIOLOGY REPORT (SQ) ---
EXAM DESCRIPTION: US PELVIS TRANSVAGINAL COMPLETED DATE/TME: 06/23/2019 04:59 CLINICAL HISTORY: 29 years, Female, elevated liver enzymes and pelvic pain COMPARISON: CT dated 12/13/2018 TECHNIQUE: Transvaginal pelvic ultrasound with grayscale and color images. LIMITATIONS: None. FINDINGS: The uterus is anteverted and measures 9.7 x 5.0 x 4.4 cm. The endometrium is up to 2 mm in thickness. The cervix measures 3.5 cm in length. The right ovary measures 4.5 x 2.3 x 2.4 cm. The right ovary demonstrates normal Doppler flow. The left ovary measures 5.6 x 4.1 x 4.7 cm. There is normal Doppler flow. There is a 4.6 x 3.4 x 4.2 cm hemorrhagic cyst. No free fluid is identified. IMPRESSION: Left ovarian hemorrhagic cyst. Otherwise, unremarkable exam. No evidence of ovarian torsion. copyright 2010 [employer]- All Rights Reserved
--- NOTE | 2019-06-23 06:14 | RADIOLOGY REPORT (SQ) ---
EXAM DESCRIPTION: US ABDOMEN LIMITED COMPLETED DATE/TME: 06/23/2019 04:59 CLINICAL HISTORY: 29 years, Female, elevated liver enzymes and pelvic pain COMPARISON: None. TECHNIQUE: Grayscale and color images of the abdomen were obtained. LIMITATIONS: None. FINDINGS: Visualized portions of the pancreas, abdominal aorta, and IVC appear unremarkable. The liver is normal in size, shape, and echotexture. The liver measures 16.0 cm. The main portal vein demonstrates normal hepatopedal flow. Cholelithiasis is noted. There is no wall thickening or pericholecystic fluid. No sonographic Silva sign was elicited. The common bile duct measures up to 1 mm in diameter. The right kidney measures 11.5 x 3.4 x 6.5 cm. There is mild hydronephrosis. There is a 5 mm stone within the mid pole. IMPRESSION: Cholelithiasis without evidence of acute cholecystitis. Mild right-sided hydronephrosis with nephrolithiasis. Further evaluation with a CT may be useful to evaluate for a possible distal obstructing stone. copyright 2010 [employer]- All Rights Reserved
[2019-06-23 07:39] LABS: CHLAM PCR NOT DETECTED (NOT DETECT)
[2019-06-24 10:37] LABS: HEPATITS B SURFACE ANTIGEN Negative (Negative)
[2019-06-24 11:08] LABS: HEPATITIS C VIRUS ANTIBODY >11.0 s/co ratio (0.0-0.9)
== END 2019-06-23 06:03 | disposition left against medical advice (07) ==
LOC: ER 00:59
DX: N89.8 Other specified noninflammatory disorders of vagina (principal); N94.10 Unspecified dyspareunia; R10.2 Pelvic and perineal pain; R68.83 Chills (without fever); R74.8 Abnormal levels of other serum enzymes; R11.2 Nausea with vomiting, unspecified; F17.210 Nicotine dependence, cigarettes, uncomplicated; Z71.6 Tobacco abuse counseling; Z79.899 Other long term (current) drug therapy; Z53.20 Procedure and treatment not carried out because of patient's decision for unspecified reasons
CPT/HCPCS: 99284; 96372; 36415; 87210; 83690; 85025; 81025; 80053; 81001; 87491; 87591; 80074; 76705; 76830; J3490; J0696

== ENCOUNTER 2019-12-23 20:48 | Emergency (ER) | payer MEDICAID ==
[2019-12-23 21:08] VITALS: BP 109/66
--- NOTE | 2019-12-23 21:34 | ER Document Report ---
ED Skin Rash/Insect Bite/Abscs - General Chief Complaint: Abscess Stated Complaint: POSSBILE ABSCESS ON FACE Time Seen by Provider: 12/23/19 21:24 Primary Care Provider: [facility] [Provider Group] - Follow up as needed [facility] [Provider Group] - Follow up as needed [facility] [Provider Group] - Follow up as needed HEMALATHA ANDREWS MD [ACTIVE STAFF] - Follow up as needed Mode of Arrival: Ambulatory Information source: Patient Notes: 29-year-old female presented to ED for abscess to the left side of her face for 2 days. Dates it was a small pimple which she squeezed and then it started draining pus. She states she has been squeezing a lot of today and so it got kind of hard so she came to the emergency room to see if she needed to have it opened and drained. She states it is still draining at this time. And is alert oriented respirations regular nonlabored speaking in full sentences walks with a even steady gait. TRAVEL OUTSIDE OF THE [place] IN LAST 30 DAYS: No - HPI Patient complains to provider of: Tender/swollen area Onset: Other - 2 days Onset/Duration: Gradual, Worse Quality of pain: Sharp Severity: Mild Pain Level: 1 Skin Character: Abscess Quality of rash: Painful Identify cause: Yes - Patient started with a pimple and she squeezed it but making it become infe Exacerbated by: Other - Pressure Relieved by: Denies Similar symptoms previously: Yes Recently seen / treated by doctor: No - Related Data Allergies/Adverse Reactions: No Known Allergies Allergy (Verified 12/28/18 16:28) Past Medical History - General Information source: Patient - Social History Smoking Status: Current Every Day Smoker Cigarette use (# per day): Yes - 1/2 pack/day Smoking Education Provided: Yes - 4 minutes Frequency of alcohol use: None Drug Abuse: None Lives with: Family Family History: Reviewed & Not Pertinent, CAD, Hyperlipidemia, Hypertension, Malignancy - Past Medical History Cardiac Medical History: Reports: None Pulmonary Medical History: Reports: None EENT Medical History: Reports: None Neurological Medical History: Reports: None Endocrine Medical History: Reports: None Renal/ Medical History: Reports: None Malignancy Medical History: Reports: None GI Medical History: Reports: None, Hx Gastroesophageal Reflux Disease - c preg Musculoskeletal Medical History: Reports None Skin Medical History: Reports Hx Cellulitis Psychiatric Medical History: Reports: Hx Bipolar Disorder - no meds, Hx Depression - no meds Traumatic Medical History: Reports: None Infectious Medical History: Reports: None Past Surgical History: Reports: Hx Breast Surgery - biopsy, Hx Section - x 3, Hx Tubal Ligation - Immunizations Immunizations up to date: Yes Hx Diphtheria, Pertussis, Tetanus Vaccination: Yes - 2014 Review of Systems - Review of Systems Constitutional: No symptoms reported EENT: No symptoms reported Cardiovascular: No symptoms reported Respiratory: No symptoms reported Gastrointestinal: No symptoms reported Genitourinary: No symptoms reported Female Genitourinary: No symptoms reported Musculoskeletal: No symptoms reported Skin: Other - Draining abscess to the left side of the face Hematologic/Lymphatic: No symptoms reported Neurological/Psychological: No symptoms reported -: Yes All other systems reviewed and negative Physical Exam - Vital signs Vitals: Temp Pulse Resp BP Pulse Ox 98.4 F 72 16 109/66 99 12/23/19 21:06 12/23/19 21:06 12/23/19 21:06 12/23/19 21:06 12/23/19 21:06 Interpretation: Normal - General General appearance: Appears well, Alert - HEENT Head: Open wounds, Tenderness, Other - Draining abscess to the left side of the face Eyes: Normal Pupils: PERRL - Respiratory Respiratory status: No respiratory distress Chest status: Nontender Breath sounds: Normal Chest palpation: Normal - Cardiovascular Rhythm: Regular Heart sounds: Normal auscultation Murmur: No - Abdominal Inspection: Normal Distension: No distension Bowel sounds: Normal Tenderness: Nontender Organomegaly: No organomegaly - Back Back: Normal, Nontender - Extremities General upper extremity: Normal inspection, Nontender, Normal color, Normal ROM, Normal temperature General lower extremity: Normal inspection, Nontender, Normal color, Normal ROM, Normal temperature, Normal weight bearing. No: Ivon's sign - Neurological Neuro grossly intact: Yes Cognition: Normal Orientation: AAOx4 [place] Coma Scale Eye Opening: Spontaneous [place] Coma Scale Verbal: Oriented [place] Coma Scale Motor: Obeys Commands Rebeca Coma Scale Total: 15 Speech: Normal Motor strength normal: LUE, RUE, LLE, RLE Sensory: Normal - Psychological Associated symptoms: Normal affect, Normal mood - Skin Skin Temperature: Warm Skin Moisture: Dry Skin Color: Normal Skin irregularity: Abscess Location of irregularity: Face - Left side of the face Irregularity with: Swelling, Tenderness, Warmth Course - Re-evaluation Re-evalutation: 12/23/19 21:56 Abscess to the face is actively draining. Patient was started on Keflex and Bactrim. She was given instructions on Epson salt soaks to the face. Wound culture was sent. Patient was instructed to follow-up with her primary care doctor Thursday or Thursday and if he gets any worse or stops draining and starts swelling to please come back to the emergency room. Patient was able to verbalize understanding and agreement with treatment plan patient was discharged home. She was treated with a dose of Bactrim and Keflex in the emergency room. - Vital Signs Vital signs: Temp Pulse Resp BP Pulse Ox 98.4 F 72 16 109/66 99 12/23/19 21:06 12/23/19 21:06 12/23/19 21:06 12/23/19 21:06 12/23/19 21:06 Discharge - Discharge Clinical Impression: Abscess of face Condition: Stable Disposition: HOME, SELF-CARE Additional Instructions: ABSCESS: You have an abscess (boil). This a pus-forming infection, usually due to staph. Some boils may be left to drain on their own, but most require lancing. From the time the tender lump first appears, it may be three or four days before the abscess is ready to lisa. Local heat and rest help at this stage of treatment. An antibiotic may prevent spread of the infection. Once the abscess is opened, packing may be placed into it. This is done so pus is not sealed inside by premature closure of the cavity. The packing will be removed at your follow-up visit or you may be advised to remove it yourself at home. Sometimes this packing must be replaced a few times during healing. The wound will heal with surprisingly little scar. Depending on the size and location of an abscess, healing can take one to four weeks. You may shower and wash the area around the incision site two or three times a day. Antibiotics may be prescribed, but are usually not necessary after an abscess has been drained. If you develop fever, chills, worsening pain, or increasing swelling in the area, call the doctor or return immediately. MRSA CELLULITIS: You have an infection of your skin and underlying soft tissues called cellulitis. This is due to bacteria, which can enter through any break in the skin, or even through an irritated hair follicle. Untreated, cellulitis will usually worsen and may form an abscess which requires draining. Although many bacterial organisms can cause cellulitis and abscess form ations, the most likely bacteria is Methicillin-Resistant Staph Aureus, or MRSA for short. Antibiotics are required. Usually, warm packs or warm soaks, and elevation of the infected area are recommended. You should start getting better within 24 to 36 hours. Most infections respond quickly to the right medication. Follow-up care is important, however, to check for abscess (boil) formation, unsuspected foreign body, or resistant infection. If you develop fever, chills, or if the area of infection is becoming rapidly more swollen or painful, call the doctor at once. CEPHALEXIN: The antibiotic you've been prescribed is a member of the cephalosporin class. This type of antibiotic covers a wide variety of infections, including those of the skin, lungs, and urinary tract. It's useful for staph infections. This antibiotic is slightly similar to the penicillin family. In rare cases, a person who is allergic to penicillin will also be allergic to this medication. If you have had a severe allergic reaction to penicillin, and have not taken this antibiotic since that time, notify your doctor. Antibiotics which cover many germs ("broad spectrum" antibiotics) are more likely to cause diarrhea or "yeast" infections. Women prone to vaginal yeast problems may suffer an attack after taking this antibiotic. In infants, oral thrush (white spots "stuck" on the cheek) or yeast diaper rash may result. See your doctor if these problems occur. Call at once if you develop itching, hives, shortness of breath, or lightheadedness. TRIMETHOPRIM-SULFA: You have been given a prescription for trimethoprim-sulfa (TMS, Septra, Bactrim). This is a combination antibiotic of the sulfa class, often used for urinary tract infections, middle ear infections, bronchitis, shigella intestinal infection, and Pneumocystis pneumonia. TMS is usually well-tolerated. Occasional side effects include nausea and decreased appetite. Septra is not recommended for infants less than two months of age. Do not take this medication if you have experienced severe side effects or allergy to sulfa medicine. You should stop this medicine at once and contact your physician if you develop any rash, joint pain, shortness of breath, bruising, or jaundice (yellow color in the skin), or if you develop any other new or unusual symptoms. Epsom Salt Soaks Soak the wound area in a container of warm epsom salt water. If you can't get the wound area into a bucket or cartwright, use a folded towel soaked in the epsom salt solution and apply to the area. Use clean hot tap water (about the temperature of a very warm bath), mixing in about one (1) teaspoon for every pint of water. Two gallon --> 16 teaspoons Epsom Salts One gallon --> 8 teaspoons Epsom Salts Two quarts --> 4 teaspoons Epsom Salts One quart --> 2 teaspoons Epsom Salts Soak the wound for about 20 minutes while gently moving it around in the water. Repeat this four (4) times a day. Ibuprofen Ibuprofen is an excellent, safe drug for pain control. In addition, it has potent antiinflammatory effects which are beneficial, especially in the treatment of injuries, arthritis, or tendonitis. It's best to take ibuprofen with food. Persons with ulcer disease or allergy to aspirin should notify their physician of this before taking ibuprofen. Take the medication exactly as prescribed. Don't take additional doses unless instructed to do so by your doctor. If you develop wheezing, shortness of breath, hives, faintness, stomach pain, vomiting, or dark black stools, return for re-evaluation at once. FOLLOW-UP CARE: Most simple abscesses will not require a follow up visit. If you had packing placed in the abscess, remove it as instructed by the physician. If you have been referred to a physician for follow-up care, call the physicians office for an appointment as you were instructed or within the next two days. If you experience worsening or a significant change in your symptoms, return to the Emergency Department at any time for re-evaluation. Prescriptions: Sulfamethoxazole/Trimethoprim [Bactrim Ds Tablet] 1 each PO BID #20 tablet Cephalexin Monohydrate [Keflex 500 mg Capsule] 500 mg PO QID #20 capsule Referrals: [facility] [Provider Group] - Follow up as needed [facility] [Provider [facility]] - Follow up as needed [facility] [Provider Group] - Follow up as needed HEMALATHA ANDREWS MD [ACTIVE STAFF] - Follow up as needed
[2019-12-23] MEDS ORDERED: CEPHALEXIN 500 MG CAPSULE PO ONE (21:38)
[2019-12-23] MEDS ORDERED: SULFAMETHOXAZOLE/TRIMETHOPRIM 800-160 MG TABLET PO ONE (21:38)
== END 2019-12-23 21:50 | disposition home or self-care (01) ==
LOC: ER 20:48
DX: L02.01 Cutaneous abscess of face (principal); F17.210 Nicotine dependence, cigarettes, uncomplicated
CPT/HCPCS: 99406; 99282; 87070; 87205; 87075; 87077; J3490